=== PATIENT | male | born 1965 | race Caucasian/White ===

== ENCOUNTER 2020-04-11 06:31 | Outpatient (CLI) | payer OTHER, SELFPAY ==
--- NOTE | 2020-04-11 07:15 | US_ITS ---
WS: [id number] ULTRASOUND SOFT TISSUES axilla. HISTORY: Enlarged axillary lymph nodes bilaterally COMPARISON: None available. TECHNIQUE: 2-D and color Doppler imaging is submitted. RIGHT axilla: There are numerous lymph nodes in the RIGHT axilla. Thickness of the cortex is increase d and is asymmetric. The largest lymph node measures 2.1 x 1.2 x 0.9 cm. Cannot determine the vascula rity on the imaging submitted. LEFT axillary lymph nodes are enlarged. The largest lymph node measures 2.3 x 1.5 x 1.6 cm. Markedly thickened cortex with displacement of the central renal fat. US/US soft tissue/extremity [id number] IMPRESSION: 1. Bilateral axillary lymphadenopathy. Abnormal lymph nodes. The most concerni ng lymph node in the LEFT axilla. This can undergo fine-needle aspiration by gregorio munson if necessary. 2. Evaluate for possible neoplastic process/lymphoma.
== END 2020-04-11 06:32 | disposition home or self-care (01) ==
LOC: RAD 06:31
PROVIDERS: Visit Provider Nurse Practitioner Family
DX: R59.0 Localized enlarged lymph nodes (principal)
CPT/HCPCS: 76882

== ENCOUNTER → 2020-04-21 17:00 | Outpatient (BNVA) | payer OTHER, SELFPAY | PROVIDERS: Visit Provider Nurse Practitioner Family | DX: R59.1 Generalized enlarged lymph nodes (principal); R53.83 Other fatigue; Z68.22 Body mass index [BMI] 22.0-22.9, adult; F17.211 Nicotine dependence, cigarettes, in remission | CPT/HCPCS: 80053; 85025 ==

== ENCOUNTER 2020-04-24 08:06 | Outpatient (CLI) | payer OTHER, SELFPAY ==
[2020-04-23 07:12] VITALS: BMI 23.5
--- NOTE | 2020-04-24 08:38 | US_ITS ---
WS: [id number] ULTRASOUND GUIDED BIOPSY LEFT AXILLARY LYMPH NODE. HISTORY: enlarged node (L) axilla Procedure, risks, and complications are explained to the patient. Consent was obtained. Skin is clean sed with ChloraPrep and anesthetized with 1% buffered lidocaine. Multiple core biopsies are performed of the abnormal lymph node in the LEFT axilla. Core biopsies are performed with a 20-gauge needle and placed in saline. Additional aspirate is performed with a 20-ga uge needle and placed in saline for cytology. No complications. US/US biopsy lymph node [id number] IMPRESSION: Uncomplicated ultrasound-guided core biopsy and aspirate of an abnormal LEFT ax illary lymph node. Final pathology results are pending.
[2020-05-01 13:02] LABS: Miscellaneous Test See Scanned Lab Rpt
== END 2020-04-24 08:07 | disposition home or self-care (01) ==
LOC: GILAB 08:11 → RAD 08:18
PROVIDERS: Radiology Diagnostic Radiology; PCP Nurse Practitioner Family; Visit Provider Nurse Practitioner Family
DX: R59.0 Localized enlarged lymph nodes (principal)
CPT/HCPCS: 38505; 76942; 88271; 88275; 88305

== ENCOUNTER 2020-05-16 13:37 | Outpatient (CLI) | payer OTHER, SELFPAY ==
--- NOTE | 2020-05-16 14:15 | USCV_ITS ---
Sammy Dykes Age: 55 Gender: M : 1965 Exam Date: 05/16/2020 13:57 Ordering Phys: Zahida Pierre MD ([email or web address]) Technologist: Susana Nunez Exam Location: [facility] – [place], [place] Indication: A FIB BP: 118 / 68 HR: 61 Rhythm: Sinus Technical Quality: Adequate MEASUREMENTS (Male / Female) Normal Values 2D ECHO LV Diastolic Diameter PLAX 4.9 cm 4.2 - 5.9 / 3.9 - 5.3 cm LV Systolic Diameter PLAX 2.9 cm LV Chamber Size 4.4 cm IVS Diastolic Thickness 0.9 cm 0.6 - 1.0 / 0.6 - 0.9 cm IVS Systolic Thickness 1.6 cm LVPW Diastolic Thickness 1.2 cm 0.6 - 1.0 / 0.6 - 0.9 cm LVPW Systolic Thickness 1.9 cm RV Chamber Size 3.4 cm LVOT Diameter 2.1 cm LV Ejection Fraction 2D Teich 71.5 % LV Ejection Fraction MOD 2C 31.5 % LV Ejection Fraction 2C AL 31.7 % LA Diameter 4.5 cm LA Width 2.9 cm LA Height 4.2 cm RA Width 3.2 cm RA Height 4.7 cm Aorta at Sinotubular Diameter 3.5 cm M-MODE Aortic Annulus Diameter 4.0 cm LA Ao Ratio MM 1.1 MV E Point Septal Separation 0.4 cm DOPPLER AV Peak Velocity 160.0 cm/s LVOT Peak Velocity 92.0 cm/s AV Area Cont Eq vti 1.7 cm squared AV Area Cont Eq pk 2.0 cm squared MV Area PHT 3.1 cm squared Mitral E to A Ratio 1.3 MV E' Velocity 15.0 cm/s Mitral E to MV E' Ratio 6.2 Mitral E to LV E' Lateral Ratio 5.8 Mitral E to LV E' Septal Ratio 6.6 TR Peak Velocity 237.7 cm/s TR Peak Gradient 22.6 mmHg TR Mean Velocity 183.0 cm/s TR Mean Gradient 14.6 mmHg TR Velocity Time Integral 71.7 cm TV Peak E Velocity 77.0 cm/s PV Peak Velocity 66.0 cm/s RV Acceleration Time 0.2 s RV Ejection Time 0.4 s RV AcT/ET 0.5 FINDINGS Left Ventricle Normal left ventricular size, systolic function and wall thickness, with no regional wall motion abnormalities. Left ventricular ejection fraction is estimated at 70%. Normal diastolic function. Right Ventricle Normal right ventricular size and systolic function. Right Atrium Normal right atrial size. Left Atrium Mildly increased left atrial size. Mitral Valve Structurally normal mitral valve. No mitral valve stenosis. Trace mitral valve regurgitation. Aortic Valve Structurally normal trileaflet aortic valve. No aortic valve stenosis. No aortic valve regurgitation. Tricuspid Valve Structurally normal tricuspid valve. No tricuspid valve stenosis. Trace tricuspid valve regurgitation. Pulmonic Valve Structurally normal pulmonic valve. No pulmonary valve stenosis. Trace pulmonary valve regurgitation. Pericardium No pericardial effusion. Aorta Normal size aortic root and proximal ascending aorta. CONCLUSIONS 1. Normal left ventricular size, systolic function and wall thickness, with no regional wall motion abnormalities. Left ventricular ejection fraction is estimated at 70%. Normal diastolic function. 2. Normal right ventricular size and systolic function. 3. No significant valvular abnormality. 4. Mildly increased left atrial size. 5. No prior similar studies to compare. Zahida Pierre MD (Electronically Signed) Final Date: 16 May 2020 17:43 S
== END 2020-05-16 13:38 | disposition home or self-care (01) ==
LOC: RAD 13:40
PROVIDERS: PCP Nurse Practitioner Family; Visit Provider Internal Medicine Cardiovascular Disease
DX: I48.91 Unspecified atrial fibrillation (principal)
CPT/HCPCS: 93306

== ENCOUNTER → 2021-05-29 14:50 | Outpatient (BNVA) | payer OTHER, SELFPAY | PROVIDERS: PCP Nurse Practitioner Family; Visit Provider Nurse Practitioner Family | DX: I10 Essential (primary) hypertension (principal); N40.0 Benign prostatic hyperplasia without lower urinary tract symptoms; C83.10 Mantle cell lymphoma, unspecified site; I48.91 Unspecified atrial fibrillation; G47.19 Other hypersomnia; G89.29 Other chronic pain | CPT/HCPCS: 80053; 80061; 82306; 82607; 84443; 85025 ==

== ENCOUNTER 2021-06-16 06:00 | Outpatient (RCR) | payer OTHER, SELFPAY | END 2021-07-02 23:59 | disposition home or self-care (01) | LOC: TPT 06:00 | PROVIDERS: PCP Nurse Practitioner Family; Referring Provider Nurse Practitioner Family; Visit Provider Nurse Practitioner Family | DX: R53.83 Other fatigue (principal); C83.10 Mantle cell lymphoma, unspecified site | CPT/HCPCS: 97110; 97163 ==

== ENCOUNTER 2021-07-03 06:00 | Outpatient (RCR) | payer OTHER, SELFPAY | END 2021-08-02 23:59 | disposition home or self-care (01) | LOC: TPT 06:00 | PROVIDERS: PCP Nurse Practitioner Family; Referring Provider Nurse Practitioner Family; Visit Provider Nurse Practitioner Family | DX: R53.83 Other fatigue (principal) | CPT/HCPCS: 97110 ==

== ENCOUNTER 2021-08-03 06:00 | Outpatient (RCR) | payer OTHER, SELFPAY | END 2021-09-01 23:59 | disposition home or self-care (01) | LOC: TPT 06:00 | PROVIDERS: PCP Nurse Practitioner Family; Visit Provider Nurse Practitioner Family | DX: R53.83 Other fatigue (principal); C83.10 Mantle cell lymphoma, unspecified site | CPT/HCPCS: 97164 ==

== ENCOUNTER → 2021-08-21 09:24 | Outpatient (BNVA) | payer OTHER, SELFPAY | PROVIDERS: PCP Nurse Practitioner Family; Visit Provider Nurse Practitioner Family | DX: R05.9 Cough, unspecified (principal) | CPT/HCPCS: 71046; 80053; 85025; 87635 ==

== ENCOUNTER → 2021-08-26 09:35 | Outpatient (BNVA) | payer OTHER, SELFPAY | PROVIDERS: PCP Nurse Practitioner Family; Visit Provider Nurse Practitioner Family | DX: J18.9 Pneumonia, unspecified organism (principal) | CPT/HCPCS: 71046 ==

== ENCOUNTER → 2021-09-15 16:40 | Outpatient (BNVA) | payer OTHER, SELFPAY | PROVIDERS: PCP Nurse Practitioner Family; Visit Provider Nurse Practitioner Family | DX: J18.9 Pneumonia, unspecified organism (principal); Z20.822 Contact with and (suspected) exposure to COVID-19 | CPT/HCPCS: 71046; 87635 ==

== ENCOUNTER → 2021-09-23 10:31 | Outpatient (BNVA) | payer OTHER, SELFPAY | PROVIDERS: PCP Nurse Practitioner Family; Visit Provider Nurse Practitioner Family | DX: Z87.01 Personal history of pneumonia (recurrent) (principal); Z85.72 Personal history of non-Hodgkin lymphomas | CPT/HCPCS: 71046 ==

== ENCOUNTER → 2021-11-10 14:52 | Outpatient (BNVA) | payer BC, SELFPAY | PROVIDERS: PCP Nurse Practitioner Family; Visit Provider Nurse Practitioner Family | DX: J84.9 Interstitial pulmonary disease, unspecified (principal); R05.9 Cough, unspecified | CPT/HCPCS: 71046 ==

== ENCOUNTER 2021-11-23 13:28 | Outpatient (CLI) | payer BC, SELFPAY ==
[2021-11-23 15:30] VITALS: BP 104/68; PULSE 58; RESP 18; TEMP 36.7; O2SAT 94
[2021-11-23 15:55] VITALS: BP 104/61; PULSE 58; RESP 18; TEMP 36.4; O2SAT 95
[2021-11-23 16:30] VITALS: BP 99/59; PULSE 57; RESP 18; TEMP 36.3; O2SAT 98
--- NOTE | 2021-11-24 12:12 | ONC CON_ITS ---
Dr. Pacheco New Patient Note Patient: Sammy Dykes Unit #: [id number]: 1965 Dicatated By: Yayo Pacheco M.D.Date of Visit: Nov 23, 2021 Onc MED New Patient/Consult Referring Physician: Dr. BLANCA THURMAN M.D. Chief Complaint: Lymphoma/hypogammaglobulinemia. History of Present Illness: This is a 56-year-old man with stage IV mantle cell lymphoma. He also has been found to have hypogammaglobulinemia, presumed treatment related. In 2019 he was discovered to have bilateral axillary adenopathy as an incidental finding on the screening coronary artery calcium CT scan. Bilateral axillary ultrasound on 04/11/2020 showed a large axillary lymph nodes bilaterally, measuring 2.1 x 1.2 x 0.9 cm on the right and 2.3 x 1.5 x 1.6 cm on the left. FNA biopsy of a left axillary lymph node on 04/24/2020 showed a monotypic B-cell population which was CD19, CD20, and CD5 positive with surface lambda light chain restriction and negative for CD10, CD23, and CD38. The findings were worrisome for mantle cell lymphoma. He was referred to Dr. Blanca Thurman at [facility] for further management. His bone marrow aspiration/biopsy on 05/14/2020 showed low-level involvement by B-cell lymphoma, consistent with stage IV disease. His staging PET/CT showed mildly FDG avid axillary and hilar lymph nodes which were felt to be indeterminant, consistent with reactive changes or low-grade lymphoma. A hypoattenuating left thyroid nodule was mildly FDG avid. He underwent initial treatment with 6 cycles of bendamustine/rituximab from 06/02/2020 through 11/04/2020. His treatment was complicated by COVID-19 virus infection in August 2020. Restaging PET/CT on 01/12/2021 showed persistent inflammatory process within both lungs, but no evidence of lymphoma. His repeat bone marrow aspiration/biopsy also showed no evidence of lymphoma. On 03/18/2021 he underwent OZZY M autologous stem cell transplant. That procedure was complicated neutropenic fever and severe neutropenia colitis, and he also developed COVID-19 virus pneumonia. He had gradual recovery, but he required treatment for pneumonia again in September 2021 and in October 2021. Due to his recurrent infections, it was opted to defer maintenance rituximab. In the meantime, he completed COVID-19 vaccinations with Moderna injections on 07/24/2021, on 10/01/2021, and on 11/03/2021. His laboratory studies in October, though, did show hypogammaglobulinemia. As such, he was recommended to receive monoclonal antibody prophylaxis for COVID-19 and to then start monthly replacement IVIG 30 days later. He is seen here so that he can receive his IVIG infusions locally. He says he is feeling fair. He does complain that he has no energy. 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 His ECOG score is 1. He has good appetite, and his weight is stable. He has no fever or night sweats. He recently had sore throat, he also has had some hoarseness. He sometimes has cough. He says his breathing is okay, though at times he does get short of breath. He is on CPAP for obstructive sleep apnea. He does not complain of chest pain. He currently has no GI or complaints. He has chronic musculoskeletal pain, mainly in the neck and back. The pain does tend to improve when he is on steroid therapy. It is otherwise unchanged. He does not complain of headache or dizziness, and he has no focal neurologic symptoms. He does report having some memory loss. He has chronic anxiety, but it is managed adequately with medication. Past Medical History: His medical history includes atrial fibrillation, benign prostatic hypertrophy, chronic anxiety, chronic musculoskeletal pain, coronary artery disease, history of COVID-19 in August 2020 and in March 2021, hypertension, mantle cell lymphoma, and obstructive sleep apnea. Past Surgical History: His surgical/procedural history includes FNA biopsy of left axillary lymph node in 2019, bone marrow aspiration/biopsy x 3, FNA biopsy of left thyroid lobe nodule in 2020, BEAM autologous stem cell transplant in 2020, and appendectomy in 1973. Medications: Acyclovir 1 Tablet (of 400 mg) Oral t.i.d., Albuterol Sulfate 2 Puff(s) (of 108 (90 base) mcg/act) Aerosol Powder, Breath Activated Inhalation four times a day PRN, DULoxetine HCl 1 Capsule (of 30 mg) Capsule Delayed Release Particles Oral daily, Famotidine (40 mg) Tablet Oral daily, Furosemide 1 Tablet (of 20 mg) Oral daily PRN, Gabapentin 1 - 2 Capsule (of 300 mg) Oral t.i.d., hydrOXYzine HCl 1 Tablet (of 25 mg) Oral q 8 hours PRN, Meloxicam 1 Tablet (of 15 mg) Oral daily, Methocarbamol 1 Tablet (of 750 mg) Oral four times a day PRN, Metoprolol Succinate ER 1 Tablet (of 200 mg) Tablet SR 24 HR Oral daily, Ondansetron HCl (8 mg) Tablet Oral Take as Directed, oxyCODONE HCl (10 mg) Tablet Oral Take as Directed, Prochlorperazine Maleate (10 mg) Tablet Oral Take as Directed, Rivaroxaban 1 Tablet (of 20 mg) Oral daily, Tamsulosin HCl 1 Capsule (of 0.4 mg) Oral daily Allergies: Penicillins Social History: Mr. Dykes is . He is a non-smoker, but he chewed tobacco for about 20 years. He quit chewing 20 years ago. He has a history of alcohol use in the past and for couple of years it was heavy. He quit drinking 3 to 4 years ago. Family History: Father with Alzheimer's dementia at age 79. Mother with heart attack at age 81. She also had breast cancer. A brother, currently age 66, has been treated for prostate cancer. A sister had breast cancer and a sister had ovarian cancer, both . A sister did of a heart attack and another with complications after surgery. One other sister is in good health. He has 2 sons, one of whom has chronic myeloid leukemia. Review Of Symptoms: Constitutional - He is feeling just fair. 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 He has good appetite and his weight is stable. He does not have fever or night sweats. ECOG score is 1, Eyes - No change in vision, ENMT - No hearing loss or tinnitus. No sinus congestion/drainage. No mouth sores. He recently had sore throat and has had hoarseness. No difficulty swallowing, Hematologic/Lymphatic - He has easy bruising, Respiratory - He has some shortness of breath. He sometimes has cough. No pleuritic pain or hemoptysis, Cardiovascular - No angina pain. No palpitations, Gastrointestinal - No nausea or vomiting. No heartburn or acid reflux. No diarrhea or constipation. No blood in the stool or black stools, Genitourinary (M) - No dysuria or hematuria. No urinary frequency. He has nocturia up to 4 times. No urgency or incontinence, Musculoskeletal - He has chronic musculoskeletal pain, mainly in the neck and back, Integumentary - No skin rash or other skin changes, Neurologic - No headache or dizziness. No numbness or tingling. No other focal neurologic symptoms. He does report having some difficulty with memory, Psychiatric - He has anxiety, but it is adequately managed with medication. No depression. He does not sleep well. Vital Signs: Performed on Nov 23, 2021 14:48: 6, 0, 25.25, 2.11 sq.m, 73 in, 94 % (LOW), 65 /min, 16 /min, 109/69 mm(hg), 97.9 F (LOW), and 191.4 lbs (HIGH). Physical Examination: Constitutional - He looks pretty good generally, Eyes - Sclerae nonicteric. Conjunctivae clear, ENMT - No lesions noted in the oral cavity, Neck - No mass or thyromegaly, Hematologic/Lymphatic - No cervical, clavicular, or axillary adenopathy, Respiratory - Lungs sound clear with slightly coarse breath sounds bilaterally, Cardiovascular - Heart rhythm is regular. There is no murmur, gallop, or rub noted, Abdomen - Soft and non-tender. Liver and spleen are not enlarged. There is no abdominal mass or ascites noted and there is no inguinal adenopathy, Back/Spine - No spine or CVA tenderness noted, Extremities - No edema. Dorsalis pedis pulses are palpable bilaterally, Integumentary - No rashes. No suspicious skin lesions noted, Neurologic - No focal neurologic deficits noted. Problem List: 1. Mantle cell lymphoma, stage IV, currently in remission. 2. Hypogammaglobulinemia, presumed treatment related. 3. History of COVID-19 virus infection in August 2020 and in March 2021. 4. Hypertension. 5. Atrial fibrillation. 6. Suspected coronary artery disease, based on CT evidence of coronary calcifications. 7. Obstructive sleep apnea. 8. Chronic musculoskeletal pain. 9. Benign prostatic hypertrophy. 10. Chronic anxiety. Problems Addressed with this Encounter and Plan: 1. Patient with mantle cell lymphoma, initially diagnosed by FNA biopsy of a left axillary lymph node in April 2020. He had stage IV disease, with bone marrow involvement. He had complete remission following treatment with 6 cycles of bendamustine/rituximab chemotherapy from May 2020 through November 2020. His treatment was complicated by COVID-19 virus infection in August 2020. He underwent BEAM autologous stem cell transplant in March 2021. That treatment was complicated by neutropenic colitis and by COVID-19 virus infection/pneumonia. He had further episodes of pneumonia in September 2021 and in October 2021. Due to recurrent infections, it was opted to defer maintenance rituximab. He is being followed expectantly for the lymphoma. 2. He has had recurrent infections and his laboratory studies in October 2021 confirmed hypogammaglobulinemia. This is presumed to be treatment related. He completed COVID-19 vaccination with injections of Moderna vaccine on 07/24/2021, on 10/01/2021, and on 11/03/2021. As such, he will now be given monoclonal antibody prophylaxis with an intramuscular injection of tixagevimab/cilgavimab. He will return in 30 days to begin his monthly replacement IVIG. He is scheduled to return for follow-up at [facility] on 04 January. He is also to receive a COVID-19 booster at a 6-month interval. Signed By: Yayo Pacheco M.D. <<Signature on File>>
== END 2021-11-23 13:29 | disposition home or self-care (01) ==
PROVIDERS: PCP Nurse Practitioner Family; Visit Provider Internal Medicine Medical Oncology
DX: C83.14 Mantle cell lymphoma, lymph nodes of axilla and upper limb (principal); D80.1 Nonfamilial hypogammaglobulinemia; I48.91 Unspecified atrial fibrillation; N40.0 Benign prostatic hyperplasia without lower urinary tract symptoms; F41.9 Anxiety disorder, unspecified; I25.10 Atherosclerotic heart disease of native coronary artery without angina pectoris; I10 Essential (primary) hypertension; G47.33 Obstructive sleep apnea (adult) (pediatric); Z79.899 Other long term (current) drug therapy; Z86.16 Personal history of COVID-19; Z87.891 Personal history of nicotine dependence
CPT/HCPCS: 96372; 99205

== ENCOUNTER 2021-12-11 09:28 | Outpatient (CLI) | payer BC, SELFPAY ==
[2021-12-11 10:35] VITALS: BP 118/80; PULSE 48; RESP 18; TEMP 36.6; O2SAT 98
== END 2021-12-11 09:29 | disposition home or self-care (01) ==
PROVIDERS: PCP Nurse Practitioner Family; Visit Provider Internal Medicine Medical Oncology
DX: U07.1 COVID-19 (principal); Z79.899 Other long term (current) drug therapy
CPT/HCPCS: 96372

== ENCOUNTER 2022-01-05 08:02 | Outpatient (CLI) | payer BC, SELFPAY ==
[2022-01-05 08:55] LABS: Basophils % 0.3 %; Eosinophils # 0.6 10^3/uL (0.0-0.8); Eosinophils % 8.4 %; Hematocrit 34.9 % (42.0-52.0); Hemoglobin 11.2 g/dL (11.7-16.6); Lymphocytes # 1.8 10^3/uL (0.8-4.8); Mean Corpuscular HGB Conc 32.1 g/dL (30.0-36.0); Mean Corpuscular Volume 87.3 fl (80-94); Mean Platelet Volume 8.8 fL (7.4-10.4); Monocytes # 0.9 10^3/uL (0.2-0.9); Monocytes % 13.8 %; Neutrophils # 3.22 10^3/uL (1.8-7.7); Neutrophils % 49.2 %; Nucleated Red Blood Cells % 0 %; Platelet Count 193 10^3/cmm (130-400); Red Cell Distribution Width 14.4 % (12.1-15.1); White Blood Count 6.5 10^3/uL (4.0-10.0)
[2022-01-05 09:15] LABS: Alanine Aminotransferase 25 U/L (0-41); Alkaline Phosphatase 156 IU/L (40-130); Anion Gap 13.1 (5-19); Aspartate Amino Transferase 29 U/L (0-40); Blood Urea Nitrogen 15 mg/dL (6-20); Calcium 9.1 mg/dL (8.5-10.5); Carbon Dioxide 28 mmol/L (22-29); Chloride 104 mmol/L (98-107); Globulin 1.4 g/dL (1.3-4.6); Glomerular Filtration Rate 86.7 mL/min (90-130); Glucose 98 mg/dL (65-115); Immunoglobulin IGG 328 mg/dL (700-1600); Lactate Dehydrogenase 217 U/L (135-225); Osmolality Calculated 293 mOsm/kg (285-295); Potassium 4.1 mmol/L (3.5-5.1); Sodium 141 mmol/L (136-145); Total Bilirubin 0.2 mg/dL (0.15-1.2); Total Protein 5.4 g/dL (6.6-8.7)
[2022-01-05 09:31] LABS: Immunoglobulin IGA 25 mg/dL (70-400); Immunoglobulin IGM 17 mg/dL (40-230)
[2022-01-05] MEDS: acetaminophen 325 mg Tablet 650 MG PO (11:30)
[2022-01-05] MEDS: diphenhydrAMINE 25 mg Capsule PO (11:30)
[2022-01-05] MEDS: sodium chloride 0.9% 250 ML 25 ML IV (11:30)
[2022-01-05 13:55] LABS: Iron 67 ug/dL (59-158); Percent Saturation 29.1 % (20-50); Total Iron Binding Capacity 230 mcg/dl; Unsaturated Iron Binding 163 ug/dL (112-347); Vitamin B12 924 pg/mL (232-1245)
--- NOTE | 2022-01-07 15:00 | ONC FU_ITS ---
Dr. Pacheco Patient Follow-Up Note Patient: Sammy Dykes Unit #: [id number]: 1965 Dicatated By: Yayo Pacheco M.D.Date of Visit:Jan 05, 2022 Onc Med Follow-up/Prog Note Chief Complaint: Lymphoma/hypogammaglobulinemia. History of Present Illness: This is a 56-year-old man with stage IV mantle cell lymphoma. He also has hypogammaglobulinemia which is presumed treatment related. In 2019 he was discovered to have bilateral axillary adenopathy as an incidental finding on the screening coronary artery calcium CT scan. Bilateral axillary ultrasound on 04/11/2020 showed a large axillary lymph nodes bilaterally, measuring 2.1 x 1.2 x 0.9 cm on the right and 2.3 x 1.5 x 1.6 cm on the left. FNA biopsy of a left axillary lymph node on 04/24/2020 showed a monotypic B-cell population which was CD19, CD20, and CD5 positive with surface lambda light chain restriction and negative for CD10, CD23, and CD38. The findings were worrisome for mantle cell lymphoma. He was referred to Dr. Prabhjot Thurman at [facility] for further management. His bone marrow aspiration/biopsy on 05/14/2020 showed low-level involvement by B-cell lymphoma, consistent with stage IV disease. His staging PET/CT showed mildly FDG avid axillary and hilar lymph nodes which were felt to be indeterminant, consistent with reactive changes or low-grade lymphoma. A hypoattenuating left thyroid nodule was mildly FDG avid. He underwent initial treatment with 6 cycles of bendamustine/rituximab from 06/02/2020 through 11/04/2020. His treatment was complicated by COVID-19 virus infection in August 2020. Restaging PET/CT on 01/12/2021 showed persistent inflammatory process within both lungs, but no evidence of lymphoma. His repeat bone marrow aspiration/biopsy also showed no evidence of lymphoma. On 03/18/2021 he underwent OZZY M autologous stem cell transplant. That procedure was complicated neutropenic fever and severe neutropenia colitis, and he also developed COVID-19 virus pneumonia. He had gradual recovery, but he required treatment for pneumonia again in September 2021 and in October 2021. Due to his recurrent infections, it was opted to defer maintenance rituximab. In the meantime, he completed COVID-19 vaccinations with Moderna injections on 07/24/2021, on 10/01/2021, and on 11/03/2021. His laboratory studies in October, though, did show hypogammaglobulinemia. As such, he was recommended to receive monoclonal antibody prophylaxis for COVID-19 and to then start monthly replacement IVIG 30 days later. He was seen here so that he could receive his IVIG infusions locally. He is seen for a scheduled visit. He has been feeling pretty good generally, though he continues to have some cough. He does bring up some green sputum with it, but he says the cough is nothing like it was before. He also says that he still does not have a lot of air, but his breathing also has improved. He finished his course of antibiotic therapy 1 to 2 weeks ago. He does not have a lot of energy, but he is working every day. ECOG score is 1. He has good appetite. He has no fever or night sweats. He has a little bit of sinus drainage. He was having sore throat, but that is okay now. He has not been having chest pain. He has no GI or complaints. He has generalized joint pain, which is the same. He does not complain of headache or dizziness. He does have some numbness/tingling, but it comes and goes. Medications: Acyclovir 1 Tablet (of 400 mg) Oral t.i.d., Albuterol Sulfate 2 Puff(s) (of 108 (90 base) mcg/act) Aerosol Powder, Breath Activated Inhalation four times a day PRN, DULoxetine HCl 1 Capsule (of 30 mg) Capsule Delayed Release Particles Oral daily, Famotidine (40 mg) Tablet Oral daily, Furosemide 1 Tablet (of 20 mg) Oral daily PRN, Gabapentin 1 - 2 Capsule (of 300 mg) Oral t.i.d., hydrOXYzine HCl 1 Tablet (of 25 mg) Oral q 8 hours PRN, Meloxicam 1 Tablet (of 15 mg) Oral daily, Metoprolol Succinate ER 1 Tablet (of 200 mg) Tablet SR 24 HR Oral daily, Ondansetron HCl (8 mg) Tablet Oral Take as Directed, oxyCODONE HCl (10 mg) Tablet Oral Take as Directed, Prochlorperazine Maleate (10 mg) Tablet Oral Take as Directed, Rivaroxaban 1 Tablet (of 20 mg) Oral daily, Tamsulosin HCl 1 Capsule (of 0.4 mg) Oral daily Allergies: Penicillins Vital Signs: Performed on Jan 05, 2022 10:08 Height - 73.00 in Weight - 201 lbs (HIGH) BSA - 2.16 sq.m BMI - 26.52 Temperature - 96.8 F (LOW) Pulse - 63 /min Respiration - 19 /min BP - 122/78 mm(hg) O2 Sat - 98 % Pain - 5 Fatigue - 0 Physical Examination: Constitutional - He looks pretty good generally, Eyes - Sclerae nonicteric. Conjunctivae clear, ENMT - No lesions noted in the oral cavity, Hematologic/Lymphatic - No cervical, clavicular, or axillary adenopathy, Respiratory - Lungs sound clear bilaterally, Cardiovascular - Heart rhythm is regular. There is no murmur, gallop, or rub noted, Abdomen - Mildly distended and tympanic. Liver and spleen are not enlarged. There is no abdominal mass or ascites noted and there is no inguinal adenopathy, Extremities - There is mild lower extremity edema, Neurologic - No focal neurologic deficits noted. Lab/Imaging: Test performed on Jan 05, 2022 08:47 Iron 67 mcg/dL LDH (Total) 217 U/L Sodium 141 mmol/L Vitamin B12 924 pg/mL Iron Binding Capacity (TIBC) 230 mcg/dl Potassium 4.1 mmol/L % Iron Saturation 29.1 % Chloride 104 mmol/L CO2 28 mmol/L UIBC 163 mcg/dL Anion Gap 13.1 BUN 15 mg/dL Creatinine 0.9 mg/dL Cr Clearance (Est) 115.37 mL/min eGFR 86.7 mL/min Glucose 98 mg/dL Osmolality - Calculated 293 mOsm/kg Calcium 9.1 mg/dL Protein, Total 5.4 g/dL Albumin 4.0 g/dL Globulin 1.4 g/dL Bilirubin, Total 0.2 mg/dL ALT (SGPT) 25 U/L AST (SGOT) 29 U/L Alkaline Phosphatase 156 IU/L WBC 6.5 10 3/uL RBC 4.00 10 6/uL HGB 11.2 g/dL HCT 34.9 % MCV 87.3 fl MCH 28.0 pg MCHC 32.1 g/dL RDW 14.4 % Platelet Count 193 10 3/cmm MPV 8.8 fL Neutrophils 3.22 10 3/uL Lymphocytes 1.8 10 3/uL Monocytes 0.9 10 3/uL Eosinophils 0.6 10 3/uL Basophils 0.0 10 3/uL Neutrophil % 49.2 % Lymphocyte % 28.0 % Monocyte % 13.8 % Eosinophil % 8.4 % Basophils % 0.3 % NRBC % 0 % IgA 25 mg/dL Problem List: 1. Mantle cell lymphoma, stage IV, currently in remission. 2. Hypogammaglobulinemia, presumed treatment related. 3. History of COVID-19 virus infection in August 2020 and in March 2021. 4. Hypertension. 5. Atrial fibrillation. 6. Suspected coronary artery disease, based on CT evidence of coronary calcifications. 7. Obstructive sleep apnea. 8. Chronic musculoskeletal pain. 9. Benign prostatic hypertrophy. 10. Chronic anxiety. Problems Addressed with this Encounter and Plan: Patient with mantle cell lymphoma, initially diagnosed by FNA biopsy of a left axillary lymph node in April 2020. He had stage IV disease, with bone marrow involvement. He had complete remission following treatment with 6 cycles of bendamustine/rituximab chemotherapy from May 2020 through November 2020. His treatment was complicated by COVID-19 virus infection in August 2020. He underwent BEAM autologous stem cell transplant in March 2021. That treatment was complicated by neutropenic colitis and by COVID-19 virus infection/pneumonia. He had further episodes of pneumonia in September 2021 and in October 2021. During follow-up he was having recurrent infections, and it was opted to defer maintenance rituximab. His laboratory studies in October 2021 confirmed hypogammaglobulinemia. This was presumed to be treatment related. He completed COVID-19 vaccination with injections of Moderna vaccine on 07/24/2021, on 10/01/2021, and on 11/03/2021. He was then given monoclonal antibody prophylaxis with an intramuscular injection of tixagevimab/cilgavimab on 11/23/2021. He will now begin monthly replacement IVIG. His dosage calculates to 40 g, which will be given by IV infusion per the routine infusion protocol. He will return for treatment again in 1 month. In the meantime, he continues expectant management for the lymphoma. Signed By: Yayo Pacheco M.D. <<Signature on File>>
== END 2022-01-05 08:03 | disposition home or self-care (01) ==
PROVIDERS: PCP Nurse Practitioner Family; Visit Provider Internal Medicine Medical Oncology
DX: C83.18 Mantle cell lymphoma, lymph nodes of multiple sites (principal); C79.52 Secondary malignant neoplasm of bone marrow; D80.1 Nonfamilial hypogammaglobulinemia; K52.89 Other specified noninfective gastroenteritis and colitis; T45.1X5A Adverse effect of antineoplastic and immunosuppressive drugs, initial encounter; Z86.16 Personal history of COVID-19; Z87.01 Personal history of pneumonia (recurrent); Z92.25 Personal history of immunosuppression therapy; Z92.21 Personal history of antineoplastic chemotherapy; Z79.899 Other long term (current) drug therapy
CPT/HCPCS: 80053; 82607; 82784; 83540; 83550; 83615; 85025; 96365; 96366; 99215; J1568; J7050

== ENCOUNTER 2022-02-04 09:07 | Oncology outpatient (recurring) (ONCR) | payer BC, SELFPAY ==
[2022-02-04 09:26] LABS: Basophils % 0.4 %; Eosinophils # 0.3 10^3/uL (0.0-0.8); Hematocrit 36.7 % (42.0-52.0); Hemoglobin 11.9 g/dL (11.7-16.6); Lymphocytes # 1.8 10^3/uL (0.8-4.8); Lymphocytes % 34.9 %; Mean Corpuscular HGB Conc 32.4 g/dL (30.0-36.0); Mean Corpuscular Hemoglobin 28.7 pg (28.0-34.0); Mean Corpuscular Volume 88.4 fl (80-94); Monocytes # 0.8 10^3/uL (0.2-0.9); Monocytes % 15.6 %; Neutrophils # 2.27 10^3/uL (1.8-7.7); Neutrophils % 43.7 %; Nucleated Red Blood Cells % 0 %; Platelet Count 236 10^3/cmm (130-400); Red Blood Count 4.15 10^6/uL (4.1-5.3); Red Cell Distribution Width 14.4 % (12.1-15.1); White Blood Count 5.2 10^3/uL (4.0-10.0)
[2022-02-04 09:44] LABS: Immunoglobulin IGG 603 mg/dL (700-1600)
[2022-02-04 10:04] LABS: Immunoglobulin IGM 23 mg/dL (40-230)
[2022-02-04 10:05] LABS: Immunoglobulin IGA 41 mg/dL (70-400)
[2022-02-04] MEDS: diphenhydrAMINE 25 mg Capsule PO (10:48)
[2022-02-04] MEDS: acetaminophen 325 mg Tablet 650 MG PO (10:48)
[2022-02-04] MEDS: sodium chloride 0.9% 250 ML 50 ML IV (10:53)
[2022-02-04 11:44] VITALS: BP 111/69; PULSE 43; TEMP 36.5; O2SAT 98
[2022-02-04 12:00] VITALS: BP 124/77; PULSE 41; TEMP 36.4; O2SAT 98
[2022-02-04 12:15] VITALS: BP 122/73; PULSE 43; TEMP 36.4; O2SAT 98
[2022-02-04 12:30] VITALS: BP 121/72; PULSE 43; TEMP 36.2; O2SAT 98
[2022-02-04 12:45] VITALS: BP 124/68; PULSE 44; TEMP 36.1; O2SAT 98
[2022-02-04 14:45] VITALS: BP 124/77; BP 137/76; PULSE 43; PULSE 45; TEMP 36.5; TEMP 36.6; O2SAT 94; O2SAT 95
== END 2022-03-02 23:59 | disposition home or self-care (01) ==
PROVIDERS: Internal Medicine Medical Oncology; PCP Nurse Practitioner Family; Referring Provider Internal Medicine Medical Oncology; Visit Provider Nurse Practitioner Family
DX: C83.19 Mantle cell lymphoma, extranodal and solid organ sites (principal); C79.52 Secondary malignant neoplasm of bone marrow; D80.1 Nonfamilial hypogammaglobulinemia; Z86.16 Personal history of COVID-19; Z87.01 Personal history of pneumonia (recurrent); Z92.21 Personal history of antineoplastic chemotherapy; Z92.25 Personal history of immunosuppression therapy; Z79.899 Other long term (current) drug therapy
CPT/HCPCS: 82784; 85025; 96365; 96366; J1568; J7050

== ENCOUNTER 2022-04-01 09:00 | Oncology outpatient (recurring) (ONCR) | payer BC, SELFPAY ==
[2022-03-04] VITALS (7 sets, daily range): BP systolic 101–114; BP diastolic 59–70; PULSE 49–65; RESP 18; TEMP 36–36.4; O2SAT 92–97
[2022-03-04 08:44] LABS: Basophils % 0.3 %; Eosinophils # 0.2 10^3/uL (0.0-0.8); Eosinophils % 2.3 %; Hematocrit 37.3 % (42.0-52.0); Hemoglobin 12.7 g/dL (11.7-16.6); Lymphocytes # 2.5 10^3/uL (0.8-4.8); Lymphocytes % 37.6 %; Mean Corpuscular Hemoglobin 29.2 pg (28.0-34.0); Mean Corpuscular Volume 85.7 fl (80-94); Monocytes # 0.8 10^3/uL (0.2-0.9); Neutrophils # 3.13 10^3/uL (1.8-7.7); Neutrophils % 47.5 %; Nucleated Red Blood Cells % 0 %; Platelet Count 237 10^3/cmm (130-400); Red Blood Count 4.35 10^6/uL (4.1-5.3); White Blood Count 6.6 10^3/uL (4.0-10.0)
[2022-03-04 09:00] LABS: Alanine Aminotransferase 22 U/L (0-41); Alkaline Phosphatase 184 IU/L (40-130); Anion Gap 14.1 (5-19); Aspartate Amino Transferase 21 U/L (0-40); Blood Urea Nitrogen 16 mg/dL (6-20); Carbon Dioxide 28 mmol/L (22-29); Chloride 104 mmol/L (98-107); Globulin 2.3 g/dL (1.3-4.6); Glomerular Filtration Rate 76.5 mL/min (90-130); Glucose 82 mg/dL (65-115); Osmolality Calculated 294 mOsm/kg (285-295); Potassium 4.1 mmol/L (3.5-5.1); Sodium 142 mmol/L (136-145); Total Bilirubin 0.2 mg/dL (0.15-1.2); Total Protein 6.3 g/dL (6.6-8.7)
[2022-03-04] MEDS: sodium chloride 0.9% 250 ML 75 ML IV (10:00)
[2022-03-04] MEDS: diphenhydrAMINE 25 mg Capsule PO (10:01)
[2022-03-04] MEDS: acetaminophen 325 mg Tablet 650 MG PO (10:01)
[2022-04-01] VITALS (7 sets, daily range): BP systolic 112–129; BP diastolic 75–85; PULSE 60–89; RESP 18; TEMP -12.6–36.3; O2SAT 96–99
[2022-04-01 08:59] LABS: Basophils % 0.2 %; Eosinophils # 0.2 10^3/uL (0.0-0.8); Hemoglobin 12.7 g/dL (11.7-16.6); Lymphocytes # 2.5 10^3/uL (0.8-4.8); Lymphocytes % 28.6 %; Mean Corpuscular HGB Conc 34.3 g/dL (30.0-36.0); Mean Corpuscular Hemoglobin 29.1 pg (28.0-34.0); Mean Corpuscular Volume 84.7 fl (80-94); Mean Platelet Volume 9.4 fL (7.4-10.4); Monocytes # 0.8 10^3/uL (0.2-0.9); Monocytes % 8.8 %; Neutrophils # 5.29 10^3/uL (1.8-7.7); Neutrophils % 60.1 %; Nucleated Red Blood Cells % 0 %; Platelet Count 239 10^3/cmm (130-400); Red Blood Count 4.37 10^6/uL (4.1-5.3); Red Cell Distribution Width 13.2 % (12.1-15.1); White Blood Count 8.8 10^3/uL (4.0-10.0)
[2022-04-01 09:20] LABS: Alanine Aminotransferase 17 U/L (0-41); Alkaline Phosphatase 135 IU/L (40-130); Aspartate Amino Transferase 20 U/L (0-40); Blood Urea Nitrogen 18 mg/dL (6-20); Carbon Dioxide 27 mmol/L (22-29); Chloride 105 mmol/L (98-107); Globulin 2.3 g/dL (1.3-4.6); Glomerular Filtration Rate 98.9 mL/min (90-130); Glucose 103 mg/dL (65-115); Osmolality Calculated 292 mOsm/kg (285-295); Sodium 140 mmol/L (136-145); Total Bilirubin 0.2 mg/dL (0.15-1.2); Total Protein 6.3 g/dL (6.6-8.7)
[2022-04-01] MEDS: diphenhydrAMINE 25 mg Capsule PO (10:38)
[2022-04-01] MEDS: acetaminophen 325 mg Tablet 650 MG PO (10:38)
[2022-04-01] MEDS: sodium chloride 0.9% 250 ML 75 ML IV (10:39)
== END 2022-04-01 23:59 | disposition home or self-care (01) ==
PROVIDERS: PCP Nurse Practitioner Family; Referring Provider Internal Medicine Medical Oncology; Visit Provider Nurse Practitioner Family
DX: Z51.11 Encounter for antineoplastic chemotherapy (principal); C83.19 Mantle cell lymphoma, extranodal and solid organ sites; D80.1 Nonfamilial hypogammaglobulinemia
CPT/HCPCS: 80053; 85025; 96365; 96366; 99214; J1568; J7050

== ENCOUNTER 2022-05-31 13:30 | Oncology outpatient (recurring) (ONCR) | payer BC, SELFPAY ==
[2022-05-04] MEDS: sodium chloride 0.9% 250 ML 75 ML IV (12:52)
[2022-05-04] MEDS: acetaminophen 325 mg Tablet 650 MG PO (12:54)
[2022-05-04] MEDS: diphenhydrAMINE 25 mg Capsule PO (12:54)
[2022-05-04 14:13] LABS: Lactate Dehydrogenase 227 U/L (135-225)
[2022-05-31] VITALS (7 sets, daily range): BP systolic 94–104; BP diastolic 60–68; PULSE 47–54; TEMP 36.5–36.9; O2SAT 94–97
[2022-05-31 14:09] LABS: Basophils % 0.6 %; Eosinophils # 0.3 10^3/uL (0.0-0.8); Eosinophils % 3.6 %; Hematocrit 38.9 % (42.0-52.0); Hemoglobin 12.7 g/dL (11.7-16.6); Lymphocytes # 2.8 10^3/uL (0.8-4.8); Lymphocytes % 40.7 %; Mean Corpuscular HGB Conc 32.6 g/dL (30.0-36.0); Mean Corpuscular Hemoglobin 28.5 pg (28.0-34.0); Mean Corpuscular Volume 87.2 fl (80-94); Mean Platelet Volume 9.5 fL (7.4-10.4); Monocytes # 0.8 10^3/uL (0.2-0.9); Monocytes % 10.9 %; Neutrophils # 3.06 10^3/uL (1.8-7.7); Neutrophils % 44.1 %; Nucleated Red Blood Cells % 0 %; Platelet Count 233 10^3/cmm (130-400); Red Blood Count 4.46 10^6/uL (4.1-5.3)
[2022-05-31 14:29] LABS: Alanine Aminotransferase 14 U/L (0-41); Alkaline Phosphatase 152 U/L (40-130); Anion Gap 14.2 (5-19); Aspartate Amino Transferase 18 U/L (0-40); Blood Urea Nitrogen 29 mg/dL (6-20); Calcium 8.8 mg/dL (8.5-10.5); Carbon Dioxide 27 mmol/L (22-29); Chloride 103 mmol/L (98-107); Globulin 2.4 g/dL (1.3-4.6); Glomerular Filtration Rate 68.5 mL/min (90-130); Glucose 115 mg/dL (65-115); Osmolality Calculated 297 mOsm/kg (285-295); Potassium 4.2 mmol/L (3.5-5.1); Sodium 140 mmol/L (136-145); Total Bilirubin 0.2 mg/dL (0.15-1.2); Total Protein 6.4 g/dL (6.6-8.7)
[2022-05-31] MEDS: diphenhydrAMINE 25 mg Capsule PO (14:38)
[2022-05-31] MEDS: acetaminophen 325 mg Tablet 650 MG PO (14:38)
== END 2022-06-02 23:59 | disposition home or self-care (01) ==
PROVIDERS: PCP Nurse Practitioner Family; Referring Provider Internal Medicine Medical Oncology; Visit Provider Nurse Practitioner Family
DX: Z12.11 Encounter for screening for malignant neoplasm of colon (principal); C83.19 Mantle cell lymphoma, extranodal and solid organ sites
CPT/HCPCS: 80053; 83615; 85025; 96365; 96366; J1568; J7050

== ENCOUNTER 2022-07-01 08:00 | Oncology outpatient (recurring) (ONCR) | payer BC, SELFPAY ==
[2022-06-30 08:20] LABS: Basophils % 0.4 %; Eosinophils # 0.1 10^3/uL (0.0-0.8); Eosinophils % 1.8 %; Hematocrit 40.5 % (42.0-52.0); Hemoglobin 13.1 g/dL (11.7-16.6); Lymphocytes # 2.4 10^3/uL (0.8-4.8); Lymphocytes % 34.7 %; Mean Corpuscular HGB Conc 32.3 g/dL (30.0-36.0); Mean Corpuscular Hemoglobin 28.2 pg (28.0-34.0); Mean Corpuscular Volume 87.1 fl (80-94); Mean Platelet Volume 8.8 fL (7.4-10.4); Monocytes # 0.7 10^3/uL (0.2-0.9); Monocytes % 10.9 %; Neutrophils # 3.52 10^3/uL (1.8-7.7); Neutrophils % 51.6 %; Nucleated Red Blood Cells % 0 %; Platelet Count 252 10^3/cmm (130-400); Red Blood Count 4.65 10^6/uL (4.1-5.3); Red Cell Distribution Width 13.2 % (12.1-15.1); White Blood Count 6.8 10^3/uL (4.0-10.0)
[2022-06-30 08:50] LABS: Alanine Aminotransferase 15 U/L (0-41); Albumin Level 3.9 g/dL (3.5-5.2); Alkaline Phosphatase 190 U/L (40-130); Anion Gap 11.7 (5-19); Aspartate Amino Transferase 19 U/L (0-40); Blood Urea Nitrogen 15 mg/dL (6-20); Calcium 9.6 mg/dL (8.5-10.5); Carbon Dioxide 32 mmol/L (22-29); Chloride 99 mmol/L (98-107); Globulin 2.8 g/dL (1.3-4.6); Glomerular Filtration Rate 98.9 mL/min (90-130); Glucose 87 mg/dL (65-115); Lactate Dehydrogenase 252 U/L (135-225); Osmolality Calculated 286 mOsm/kg (285-295); Potassium 4.7 mmol/L (3.5-5.1); Sodium 138 mmol/L (136-145); Total Bilirubin 0.3 mg/dL (0.15-1.2); Total Protein 6.7 g/dL (6.6-8.7)
[2022-07-01] VITALS (7 sets, daily range): BP systolic 106–121; BP diastolic 69–77; PULSE 45–53; TEMP 36.2–36.9; O2SAT 93–97
[2022-07-01] MEDS: acetaminophen 325 mg Tablet 650 MG PO (08:24)
[2022-07-01] MEDS: diphenhydrAMINE 25 mg Capsule PO (08:24)
[2022-07-01] MEDS: sodium chloride 0.9% 250 ML 25 ML IV (08:27)
== END 2022-07-02 23:59 | disposition home or self-care (01) ==
PROVIDERS: Internal Medicine Medical Oncology; PCP Nurse Practitioner Family; Referring Provider Internal Medicine Medical Oncology; Visit Provider Nurse Practitioner Family
DX: C83.19 Mantle cell lymphoma, extranodal and solid organ sites (principal); D80.1 Nonfamilial hypogammaglobulinemia
CPT/HCPCS: 36415; 80053; 83615; 85025; 96365; 96366; J1568; J7050

== ENCOUNTER 2022-07-29 08:25 | Oncology outpatient (recurring) (ONCR) | payer BC, SELFPAY ==
[2022-07-29] VITALS (7 sets, daily range): BP systolic 100–114; BP diastolic 64–76; PULSE 52–58; TEMP 36.3–37.1; O2SAT 93–99
[2022-07-29] MEDS: acetaminophen 325 mg Tablet 650 MG PO (09:53)
[2022-07-29] MEDS: diphenhydrAMINE 25 mg Capsule PO (09:54)
[2022-07-29] MEDS: sodium chloride 0.9% 250 ML 100 ML IV (09:54)
== END 2022-08-02 23:59 | disposition home or self-care (01) ==
PROVIDERS: PCP Nurse Practitioner Family; Visit Provider Internal Medicine Medical Oncology
DX: C83.19 Mantle cell lymphoma, extranodal and solid organ sites (principal); D80.1 Nonfamilial hypogammaglobulinemia
CPT/HCPCS: 80053; 85025; 96365; 96366; J1568; J7050

== ENCOUNTER 2022-08-25 07:47 | Oncology outpatient (recurring) (ONCR) | payer BC, SELFPAY ==
[2022-08-25] VITALS (7 sets, daily range): BP systolic 133–150; BP diastolic 77–108; PULSE 80–111; TEMP 36.3–36.9; O2SAT 95–100
[2022-08-25 08:22] LABS: Basophils % 0.5 %; Eosinophils # 0.1 10^3/uL (0.0-0.8); Eosinophils % 2.4 %; Hematocrit 38.3 % (42.0-52.0); Hemoglobin 12.6 g/dL (11.7-16.6); Lymphocytes # 1.7 10^3/uL (0.8-4.8); Lymphocytes % 40.6 %; Mean Corpuscular HGB Conc 32.9 g/dL (30.0-36.0); Mean Corpuscular Hemoglobin 28.1 pg (28.0-34.0); Mean Corpuscular Volume 85.3 fl (80-94); Mean Platelet Volume 8.8 fL (7.4-10.4); Monocytes # 0.7 10^3/uL (0.2-0.9); Monocytes % 15.7 %; Neutrophils # 1.67 10^3/uL (1.8-7.7); Neutrophils % 40.3 %; Nucleated Red Blood Cells % 0 %; Platelet Count 247 10^3/cmm (130-400); Red Blood Count 4.49 10^6/uL (4.1-5.3); Red Cell Distribution Width 13.1 % (12.1-15.1); White Blood Count 4.1 10^3/uL (4.0-10.0)
[2022-08-25 08:37] LABS: Alanine Aminotransferase 10 U/L (0-41); Albumin Level 3.9 g/dL (3.5-5.2); Alkaline Phosphatase 187 U/L (40-130); Anion Gap 13.1 (5-19); Aspartate Amino Transferase 15 U/L (0-40); Blood Urea Nitrogen 12 mg/dL (6-20); Calcium 9.1 mg/dL (8.5-10.5); Carbon Dioxide 27 mmol/L (22-29); Chloride 100 mmol/L (98-107); Globulin 2.6 g/dL (1.3-4.6); Glomerular Filtration Rate 98.9 mL/min (90-130); Glucose 108 mg/dL (65-115); Osmolality Calculated 282 mOsm/kg (285-295); Potassium 4.1 mmol/L (3.5-5.1); Sodium 136 mmol/L (136-145); Total Bilirubin 0.2 mg/dL (0.15-1.2); Total Protein 6.5 g/dL (6.6-8.7)
[2022-08-25] MEDS: diphenhydrAMINE 25 mg Capsule PO (09:05)
[2022-08-25] MEDS: acetaminophen 325 mg Tablet 650 MG PO (09:05)
[2022-08-25] MEDS: sodium chloride 0.9% 250 ML 100 ML IV (09:06)
== END 2022-09-01 23:59 | disposition home or self-care (01) ==
PROVIDERS: PCP Nurse Practitioner Family; Visit Provider Internal Medicine Medical Oncology
DX: D80.1 Nonfamilial hypogammaglobulinemia (principal)
CPT/HCPCS: 80053; 85025; 96365; 96366; J1568; J7050

== ENCOUNTER 2022-09-22 08:22 | Oncology outpatient (recurring) (ONCR) | payer BC, SELFPAY ==
[2022-09-22] VITALS (7 sets, daily range): BP systolic 116–128; BP diastolic 74–89; PULSE 74–95; RESP 16; TEMP 35.7–36.2; O2SAT 95–99
[2022-09-22 08:40] LABS: Basophils % 0.7 %; Eosinophils # 0.1 10^3/uL (0.0-0.8); Eosinophils % 1.9 %; Hematocrit 39.4 % (42.0-52.0); Hemoglobin 12.9 g/dL (11.7-16.6); Lymphocytes # 1.8 10^3/uL (0.8-4.8); Lymphocytes % 31.5 %; Mean Corpuscular HGB Conc 32.7 g/dL (30.0-36.0); Mean Corpuscular Hemoglobin 28.2 pg (28.0-34.0); Mean Platelet Volume 8.7 fL (7.4-10.4); Monocytes # 0.7 10^3/uL (0.2-0.9); Monocytes % 12.7 %; Neutrophils # 3.08 10^3/uL (1.8-7.7); Neutrophils % 52.7 %; Nucleated Red Blood Cells % 0 %; Platelet Count 274 10^3/cmm (130-400); Red Blood Count 4.58 10^6/uL (4.1-5.3); Red Cell Distribution Width 12.8 % (12.1-15.1); White Blood Count 5.8 10^3/uL (4.0-10.0)
[2022-09-22] MEDS: sodium chloride 0.9% 250 ML 100 ML IV (08:59)
[2022-09-22] MEDS: diphenhydrAMINE 25 mg Capsule PO (08:59)
[2022-09-22] MEDS: acetaminophen 325 mg Tablet 650 MG PO (08:59)
[2022-09-22 09:22] LABS: Alanine Aminotransferase 9 U/L (0-41); Albumin Level 3.6 g/dL (3.5-5.2); Alkaline Phosphatase 168 U/L (40-130); Anion Gap 12.9 (5-19); Aspartate Amino Transferase 16 U/L (0-40); Blood Urea Nitrogen 13 mg/dL (6-20); Carbon Dioxide 25 mmol/L (22-29); Chloride 100 mmol/L (98-107); Globulin 2.5 g/dL (1.3-4.6); Glomerular Filtration Rate 115.4 mL/min (90-130); Glucose 127 mg/dL (65-115); Osmolality Calculated 280 mOsm/kg (285-295); Potassium 3.9 mmol/L (3.5-5.1); Sodium 134 mmol/L (136-145); Total Bilirubin 0.2 mg/dL (0.15-1.2); Total Protein 6.1 g/dL (6.6-8.7)
== END 2022-10-02 23:59 | disposition home or self-care (01) ==
LOC: ONCMED 08:22
PROVIDERS: PCP Nurse Practitioner Family; Visit Provider Internal Medicine Medical Oncology
DX: D80.1 Nonfamilial hypogammaglobulinemia (principal); Z79.899 Other long term (current) drug therapy
CPT/HCPCS: 80053; 85025; 96365; 96366; J1568; J7050

== ENCOUNTER 2022-10-20 14:16 | Oncology outpatient (recurring) (ONCR) | payer BC, SELFPAY | END 2022-11-02 23:59 | disposition home or self-care (01) | PROVIDERS: PCP Nurse Practitioner Family; Visit Provider Internal Medicine Medical Oncology | DX: Z53.9 Procedure and treatment not carried out, unspecified reason (principal) ==

== ENCOUNTER → 2022-10-21 17:09 | Outpatient (BNVA) | payer BC, SELFPAY | PROVIDERS: PCP Nurse Practitioner Family; Visit Provider Nurse Practitioner Family | DX: R05.9 Cough, unspecified (principal); R06.02 Shortness of breath; J18.9 Pneumonia, unspecified organism | CPT/HCPCS: 71046 ==

== ENCOUNTER → 2022-10-29 15:47 | Outpatient (BNVA) | payer BC, SELFPAY | PROVIDERS: PCP Nurse Practitioner Family; Visit Provider Nurse Practitioner Family | DX: R05.8 Other specified cough (principal) | CPT/HCPCS: 71046 ==

== ENCOUNTER 2022-11-24 07:49 | Oncology outpatient (recurring) (ONCR) | payer BC, SELFPAY ==
[2022-11-24] VITALS (8 sets, daily range): BP systolic 121–132; BP diastolic 87–96; PULSE 81–105; RESP 18; TEMP 36.1–36.7; O2SAT 96–99
--- NOTE | 2022-11-24 08:23 | ECG_ITS ---
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 Measurements Intervals [place] Rate: 110 P: 0 WV: 0 QRS: 5 QRSD: 85 T: 24 QT: 337 QTc: 457 Interpretive Statements ATRIAL FIBRILLATION WITH RAPID VENTRICULAR RESPONSE No previous ECG available for comparison Electronically Signed On 11-24-2022 10:28:37 FUEL CELL BINDER by Wilfredo Tavera M.D. [id number]
[2022-11-24 08:50] LABS: Basophils % 0.4 %; Eosinophils # 0.2 10^3/uL (0.0-0.8); Eosinophils % 3.8 %; Hematocrit 39.3 % (42.0-52.0); Hemoglobin 12.6 g/dL (11.7-16.6); Mean Corpuscular HGB Conc 32.1 g/dL (30.0-36.0); Mean Corpuscular Hemoglobin 27.6 pg (28.0-34.0); Mean Platelet Volume 8.7 fL (7.4-10.4); Monocytes # 0.7 10^3/uL (0.2-0.9); Monocytes % 12.8 %; Neutrophils # 2.56 10^3/uL (1.8-7.7); Neutrophils % 46.8 %; Nucleated Red Blood Cells % 0 %; Platelet Count 216 10^3/cmm (130-400); Red Blood Count 4.57 10^6/uL (4.1-5.3); Red Cell Distribution Width 14.3 % (12.1-15.1); White Blood Count 5.5 10^3/uL (4.0-10.0)
[2022-11-24] MEDS: sodium chloride 0.9% 250 ML 50 ML IV (09:08)
[2022-11-24] MEDS: acetaminophen 325 mg Tablet 650 MG PO (09:09)
[2022-11-24] MEDS: diphenhydrAMINE 25 mg Capsule PO (09:10)
[2022-11-24 09:37] LABS: Alanine Aminotransferase 29 U/L (0-41); Albumin Level 3.6 g/dL (3.5-5.2); Alkaline Phosphatase 160 U/L (40-130); Anion Gap 11.8 (5-19); Aspartate Amino Transferase 28 U/L (0-40); Blood Urea Nitrogen 17 mg/dL (6-20); Calcium 8.7 mg/dL (8.5-10.5); Carbon Dioxide 27 mmol/L (22-29); Chloride 101 mmol/L (98-107); Globulin 2.5 g/dL (1.3-4.6); Glomerular Filtration Rate 98.9 mL/min (90-130); Glucose 83 mg/dL (65-115); Osmolality Calculated 281 mOsm/kg (285-295); Potassium 4.8 mmol/L (3.5-5.1); Sodium 135 mmol/L (136-145); Total Bilirubin 0.2 mg/dL (0.15-1.2); Total Protein 6.1 g/dL (6.6-8.7)
[2022-11-24 10:02] LABS: Lactate Dehydrogenase 233 U/L (135-225)
== END 2022-11-30 23:59 | disposition home or self-care (01) ==
PROVIDERS: PCP Nurse Practitioner Family; Visit Provider Internal Medicine Medical Oncology
DX: D80.1 Nonfamilial hypogammaglobulinemia (principal); Z79.899 Other long term (current) drug therapy; I48.91 Unspecified atrial fibrillation; C83.59 Lymphoblastic (diffuse) lymphoma, extranodal and solid organ sites
CPT/HCPCS: 80053; 83615; 85025; 93005; 96365; 96366; J1561; J7050

== ENCOUNTER 2022-12-22 10:51 | Oncology outpatient (recurring) (ONCR) | payer BC, SELFPAY ==
[2022-12-22] MEDS: sodium chloride 0.9% 250 ML 100 ML IV (11:10)
[2022-12-22] MEDS: acetaminophen 325 mg Tablet 650 MG PO (11:14)
[2022-12-22] MEDS: diphenhydrAMINE 25 mg Capsule PO (11:14)
[2022-12-22 11:35] VITALS: BP 102/70; PULSE 99; RESP 14; TEMP 36.7; O2SAT 96
[2022-12-22 11:50] VITALS: BP 95/64; PULSE 103; TEMP 36.3; O2SAT 93
[2022-12-22 12:05] VITALS: BP 98/73; PULSE 92; TEMP 36.2; O2SAT 95
[2022-12-22 12:20] VITALS: BP 106/72; PULSE 71; TEMP 36.4; O2SAT 95
[2022-12-22 12:50] VITALS: BP 108/72; PULSE 97; TEMP 36.6; O2SAT 95
[2022-12-22 14:03] VITALS: BP 114/71; PULSE 98; TEMP 36.2; O2SAT 96
== END 2022-12-31 23:59 | disposition home or self-care (01) ==
LOC: ONCMED 10:51
PROVIDERS: PCP Nurse Practitioner Family; Visit Provider Internal Medicine Medical Oncology
DX: D80.1 Nonfamilial hypogammaglobulinemia (principal); Z79.899 Other long term (current) drug therapy
CPT/HCPCS: 96365; 96366; J1561; J7050

== ENCOUNTER 2022-12-29 13:12 | Inpatient (IN) | payer BC, SELFPAY ==
[2022-12-29] VITALS (13 sets, daily range): BP systolic 126–150; BP diastolic 85–111; PULSE 78–122; RESP 12–20; TEMP 36.6–36.7; O2SAT 93–99; BMI 26.1
[2022-12-29] MEDS: dilTIAZem 5 mg/mL SDV 5 mL 20 MG IVP (13:30)
--- NOTE | 2022-12-29 13:35 | ECG_ITS ---
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 Measurements Intervals [place] Rate: 95 P: 0 SC: 0 QRS: 13 QRSD: 93 T: 27 QT: 364 QTc: 458 Interpretive Statements ATRIAL FIBRILLATION NONSPECIFIC T-WAVE ABNORMALITY ABNORMAL RHYTHM ECG Compared to ECG 11/24/2022 08:39:45 T-wave abnormality now present Electronically Signed On 12-29-2022 23:53:51 CDT by Bonnie Jacobsen M.D. [email or web address]
[2022-12-29 13:55] LABS: Add Urine Microscopic? NO; Charge for UA Resulting for Rev
--- NOTE | 2022-12-29 13:58 | ECG_ITS ---
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 Measurements Intervals [place] Rate: 92 P: 0 AR: 0 QRS: 8 QRSD: 105 T: 8 QT: 387 QTc: 479 Interpretive Statements ATRIAL FIBRILLATION NONSPECIFIC T-WAVE ABNORMALITY ABNORMAL RHYTHM ECG Compared to ECG 12/29/2022 13:35:59 No significant changes Electronically Signed On 12-29-2022 23:53:55 CDT by Bonnie Jacobsen M.D. [email or web address]
--- NOTE | 2022-12-29 13:59 | W.ED.ARRPALP ---
HPI - Arrhythmia/Palpitations General: Chief Complaint: Arrhythmia/Palpitations Stated Complaint: Sent from [facility] heart issues Time Seen by Provider: 12/29/22 13:23 Source: patient Mode of arrival: ambulatory History of Present Illness: 57-year-old male, he was seen today by Dr. Tavera in the clinic and found to be in A-fib with RVR he has a known history of A-fib with RVR normally is on metoprolol and is also on Xarelto. He is having some chronic neck discomfort is not new or different has not had any chest pain Dr. Flannery called over there planning to place him on observation and do a synchronized cardioversion tomorrow. 57-year-old male presents to the emergency room with complaints of rapid heart rate. MD complaint: rapid heart beat and heart racing Duration: constant Severity: mild Context: occurred during rest Arrhythmia history: atrial fibrillation Associated symptoms: Deny anxiety, cough, diaphoresis, muscle cramps, nausea, paresthesias, pre-syncope, sense of impending doom, short of breath, syncope or vomiting Review of Systems Const: Denies: fever(s), chills, fatigue, malaise or diaphoresis ENMT: Denies: throat pain, ear or mastoid pain, nasal discharge or nasal congestion Card: Reports: palpitations and irregular heart rhythm; Denies: chest pain, edema, swelling of feet/ankles, syncope or pre-syncope Resp: Denies: dyspnea, productive cough or non-productive cough GI: Denies: nausea or vomiting : Denies: flank pain, dysuria, urinary frequency or urinary urgency Musc: Reports: neck pain (Chronic); Denies: muscle cramps Skin/Breast: Denies: rash or pruritus Psych: Denies: anxiety PFSH ED PFSH: Medical History Atrial fibrillation BPH (benign prostatic hyperplasia) Chronic anxiety Chronic pain Daytime hypersomnia Hypertension Hypogammaglobulinemia Mantle cell lymphoma MARLI (obstructive sleep apnea) Surgical History History of appendectomy History of lymph node biopsy (04/24/20) FNA biopsy of left axillary lymph node S/P thyroid biopsy (12/24/20) FNA biopsy of left thyroid lobe nodule Family History Sister Cancer Mother Hypertension CAD (coronary artery disease) Father Alzheimer disease Denies family history of Diabetes Clotting disorder Dementia Hyperlipidemia Psychiatric illness Chronic kidney disease (CKD) Suicide Anesthesia complication Bleeding disorder Lung disease Stroke Social History Smoking and tobacco status: never smoked Quit status (tobacco): has quit using tobacco Former quit date comment: chewed 0.5- 1 ppd Second hand smoke exposure: No Alcohol intake: former Year of sobriety/quit date alcohol: 2019 Former alcohol use details: drank mostly beer Lives independently: Yes Marital status: service: No Current occupational status: employed Current occupation: [employer] Current gender identity: Male Special fredy needs: No Agree to transfusion: Yes Physical Exam Const: GENERAL APPEARANCE: cooperative and comfortable ORIENTATION/CONSCIOUSNESS: Yes awake, Yes oriented to person, Yes oriented to place and Yes oriented to time HENMT: COMMON NORMALS: normocephalic, atraumatic and hearing grossly normal bilaterally HEAD & SCALP: normocephalic and atraumatic Resp: COMMON NORMALS: normal respiratory effort, No retractions, No use of accessory muscles and clear to auscultation bilaterally AUSCULTATION: clear to auscultation bilaterally Cardio: COMMON NORMALS: No murmurs present (Cardio) RATE: tachycardic RHYTHM: abnormal rhythm irregularly irregular GI: COMMON NORMALS: Soft to palpation and No hepatosplenomegaly present AUSCULTATION: Yes normoactive bowel sounds PALPATION: Yes Soft to palpation, No Tenderness to palpation present (GI), No Guarding due to palpation present (GI) and Yes No hepatosplenomegaly present Extremity: COMMON NORMALS: normal to inspection, capillary refill normal, no clubbing, cyanosis or edema, no calf tenderness and no pedal edema Neuro: SENSORIUM/ORIENTATION: Yes oriented to person, Yes oriented to place and Yes oriented to time Skin: COMMON NORMALS: no rashes or lesions noted GENERAL SKIN EXAM: no rashes or lesions noted Course Vital Signs: Vital signs: Vital Signs Temperature 98.0 F 12/29/22 15:37 Pulse Rate 93 12/29/22 15:37 Respiratory Rate 14 12/29/22 15:37 Blood Pressure 137/103 12/29/22 15:37 Pulse Oximetry 99 12/29/22 15:37 Oxygen Delivery Me thod 12/29/22 15:37 MDM - Arrhythmia/Palpitations Medical Decision Making Patient has longstanding history of atrial fibrillation Dr. Arana and called the head head the patient in clinic he is in A-fib with RVR. Asked that we start Cardizem and place in observation for cardioversion. On arrival here patient in A-fib with RVR he was given 20 mg IV push Cardizem and then started to drip at 2.5 mg his main pain good control below 100. He is asymptomatic this time discussed with hospitalist orders written consult Dr. Arana. Medical Records I reviewed the patient's medical records. Lab Data I reviewed the patient's lab results. 12/29/22 13:37 12/29/22 13:37 Radiology Impressions Chest X-Ray 12/29/22 14:09 IMPRESSION: 1. No acute cardiopulmonary finding. Laboratory Results WBC 7.1 10^3/uL (4.0-10.0) 12/29/22 13:37 RBC 4.77 10^6/uL (4.1-5.3) 12/29/22 13:37 Hgb 12.8 g/dL (11.7-16.6) 12/29/22 13:37 Hct 40.4 % (42.0-52.0) L 12/29/22 13:37 MCV 84.7 fl (80-94) 12/29/22 13:37 MCH 26.8 pg (28.0-34.0) L 12/29/22 13:37 MCHC 31.7 g/dL (30.0-36.0) 12/29/22 13:37 RDW 14.4 % (12.1-15.1) 12/29/22 13:37 Plt Count 289 10^3/cmm (130-400) 12/29/22 13:37 MPV 8.9 fL (7.4-10.4) 12/29/22 13:37 Neut % (Auto) 52.9 % 12/29/22 13:37 Lymph % (Auto) 32.9 % 12/29/22 13:37 [place] % (Auto) 9.5 % 12/29/22 13:37 Eos % (Auto) 3.8 % 12/29/22 13:37 Baso % (Auto) 0.6 % 12/29/22 13:37 Neut # (Auto) 3.74 10^3/uL (1.8-7.7) 12/29/22 13:37 Lymph # (Auto) 2.3 10^3/uL (0.8-4.8) 12/29/22 13:37 [place] # (Auto) 0.7 10^3/uL (0.2-0.9) 12/29/22 13:37 Eos # (Auto) 0.3 10^3/uL (0.0-0.8) 12/29/22 13:37 Baso # (Auto) 0.0 10^3/uL (0.0-0.1) 12/29/22 13:37 Nucleated RBC % (auto) 0 % 12/29/22 13:37 Nucleated RBCs # 0.0 /100WBC 12/29/22 13:37 Sodium 140 mmol/L (136-145) 12/29/22 13:37 Potassium 3.9 mmol/L (3.5-5.1) 12/29/22 13:37 Chloride 103 mmol/L (98-107) 12/29/22 13:37 Carbon Dioxide 28 mmol/L (22-29) 12/29/22 13:37 Anion Gap 12.9 (5-19) 12/29/22 13:37 BUN 17 mg/dL (6-20) 12/29/22 13:37 Creatinine 0.8 mg/dL (0.7-1.2) 12/29/22 13:37 GFR Calculation 98.9 mL/min (90-130) 12/29/22 13:37 Glucose 81 mg/dL (65-115) 12/29/22 13:37 Calculated Osmolality 291 mOsm/kg (285-295) 12/29/22 13:37 Calcium 8.9 mg/dL (8.5-10.5) 12/29/22 13:37 Total Bilirubin 0.2 mg/dL (0.15-1.2) 12/29/22 13:37 AST 14 U/L (0-40) 12/29/22 13:37 ALT 9 U/L (0-41) 12/29/22 13:37 Alkaline Phosphatase 139 U/L (40-130) H 12/29/22 13:37 Troponin T Baseline 11 ng/L (0-15) 12/29/22 13:37 Troponin T 120 Minute 11.72 ng/L (0-15) 12/29/22 15:05 Delta Troponin T 0.72 ABS# (0-10) 12/29/22 15:05 Total Protein 6.8 g/dL (6.6-8.7) 12/29/22 13:37 Albumin 3.8 g/dL (3.5-5.2) 12/29/22 13:37 Globulin 3.0 g/dL (1.3-4.6) 12/29/22 13:37 Urine Color Yellow (Yellow) 12/29/22 13:47 Urine Appearance Clear (CLEAR) 12/29/22 13:47 Urine pH 5 (5-7) 12/29/22 13:47 Ur Specific [place] 1.020 (1.005-1.030) 12/29/22 13:47 Urine Protein Neg (Negative) 12/29/22 13:47 Urine Glucose (UA) Norm (Normal) 12/29/22 13:47 Urine Ketones Negative (Negative) 12/29/22 13:47 Urine Blood Neg (Negative) 12/29/22 13:47 Urine Nitrate Negative (Negative) 12/29/22 13:47 Urine Bilirubin 1+ (Negative) H 12/29/22 13:47 Urine Urobilinogen Neg mg/dL (Negative) 12/29/22 13:47 Ur Leukocyte Esterase Negative (Negative) 12/29/22 13:47 Discharge Plan Discharge Patient Disposition: Admitted As Inpatient Admit Provider: Oumar Francois Clinical Impression: Atrial fibrillation with RVR Condition: Stable Coding Level of Care Code ED Sybase Developer for Petra Thomas
[2022-12-29 14:00] LABS: Bilirubin Urine 1+ (Negative); Blood Urine Neg (Negative); Glucose Urine UA Norm (Normal); Ketones Urine Negative (Negative); Leukocyte Esterase Urine Negative (Negative); Nitrate Urine Negative (Negative); Protein Urine Neg (Negative); Urine Appearance Clear (CLEAR); Urine Color Yellow (Yellow); Urobilinogen Urine Neg (Negative); pH Urine 5 (5-7)
[2022-12-29 14:00] LABS: Basophils % 0.6 %; Eosinophils # 0.3 10^3/uL (0.0-0.8); Eosinophils % 3.8 %; Hematocrit 40.4 % (42.0-52.0); Hemoglobin 12.8 g/dL (11.7-16.6); Lymphocytes # 2.3 10^3/uL (0.8-4.8); Lymphocytes % 32.9 %; Mean Corpuscular HGB Conc 31.7 g/dL (30.0-36.0); Mean Corpuscular Hemoglobin 26.8 pg (28.0-34.0); Mean Corpuscular Volume 84.7 fl (80-94); Mean Platelet Volume 8.9 fL (7.4-10.4); Monocytes # 0.7 10^3/uL (0.2-0.9); Monocytes % 9.5 %; Neutrophils # 3.74 10^3/uL (1.8-7.7); Neutrophils % 52.9 %; Nucleated Red Blood Cells % 0 %; Platelet Count 289 10^3/cmm (130-400); Red Blood Count 4.77 10^6/uL (4.1-5.3); Red Cell Distribution Width 14.4 % (12.1-15.1); White Blood Count 7.1 10^3/uL (4.0-10.0)
[2022-12-29] MEDS: dilTIAZem 100 MG in sodium chloride 0.9% (add-van) 100 ML IV (14:08)
--- NOTE | 2022-12-29 14:08 | PC.NURSE ---
DR. LUO GAVE VERBAL ORDER TO START CARDIZEM DRIP AT 2.5ML/HR ORDER VERBALIZED BACK AND CONFIRMED.
--- NOTE | 2022-12-29 14:09 | XR_ITS ---
WS: [id number] Exam: XR chest 1V portable [id number] Date/Time of Exam: 12/29/2022 2:11 PM Reason For Exam: dyspnea Comparison 10/29/2022. The lungs are clear and fully expanded. Cardiomediastinal silhouette is unremarkable for technique. B sanna structures are intact. No pleural effusions. Monitoring leads superimpose the chest. XR/XR chest 1V portable [id number] IMPRESSION: 1. No acute cardiopulmonary finding.
[2022-12-29 14:24] LABS: Troponin(5th) Baseline 11 ng/L (0-15)
[2022-12-29 14:26] LABS: Alanine Aminotransferase 9 U/L (0-41); Albumin Level 3.8 g/dL (3.5-5.2); Alkaline Phosphatase 139 U/L (40-130); Anion Gap 12.9 (5-19); Aspartate Amino Transferase 14 U/L (0-40); Blood Urea Nitrogen 17 mg/dL (6-20); Calcium 8.9 mg/dL (8.5-10.5); Carbon Dioxide 28 mmol/L (22-29); Chloride 103 mmol/L (98-107); Glomerular Filtration Rate 98.9 mL/min (90-130); Glucose 81 mg/dL (65-115); Osmolality Calculated 291 mOsm/kg (285-295); Potassium 3.9 mmol/L (3.5-5.1); Sodium 140 mmol/L (136-145); Total Bilirubin 0.2 mg/dL (0.15-1.2); Total Protein 6.8 g/dL (6.6-8.7)
--- NOTE | 2022-12-29 14:35 | PC.NURSE ---
PT PLACED ON CONTINUOUS NIBP, SPO2, AND CM
--- NOTE | 2022-12-29 15:25 | ECG_ITS ---
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 Measurements Intervals [place] Rate: 99 P: 0 NC: 0 QRS: 18 QRSD: 92 T: 26 QT: 383 QTc: 492 Interpretive Statements ATRIAL FIBRILLATION NONSPECIFIC ST & T-WAVE ABNORMALITY ABNORMAL RHYTHM ECG Compared to ECG 12/29/2022 13:58:02 No significant changes Electronically Signed On 12-30-2022 0:00:57 CDT by Bonnie Jacobsen M.D. [id number]
[2022-12-29 15:31] LABS: Troponin 5 2HR 11.72 ng/L (0-15)
[2022-12-29 15:33] LABS: Troponin 5 2HR Delta 0.72 ABS# (0-10)
--- NOTE | 2022-12-29 15:43 | PM.HP ---
Providers/Chief Complaint Admitting Physician: Oumar Francois MD Primary Care Provider: RENÉE Cates Chief Complaint: Sent from [facility], heart issues History of Present Illness Sammy Dykes (Jed) is a 57 year old male with pmh of a.fib,htn sleep apnea, was seen by his primary clinical applications specialist today as patient where he was found to be in a.fib with rvr,and was sent to ER for the management of same.In Er he was started on cardizem drip.lately patient has been complaining of increasing SOB as well as fatigue, he denied any chest pain. Recent event monitor : has shown an average H/R of 132 EKG: Showed A.Fib with rvr Xray chest : no acute findings pertinent labs: WBC:9.5 H&H: PLT : 249 Na: 135 K:4.5 BUN/SCR : 14/0.8 Review of Systems General: Reports: 10 or more systems reviewed and unremarkable except in HPI and below Const: Denies: fever(s), chills, body aches, change in appetite or diaphoresis Card: Reports: palpitations; Denies: edema, swelling of feet/ankles, dyspnea on exertion, orthopnea or leg pain with exertion Resp: Reports: dyspnea; Denies: productive cough, wheezing or pain on inspiration GI: Denies: abdominal pain, nausea, vomiting, diarrhea or constipation : Denies: flank pain or difficulty urinating Musc: Denies: back pain, extremity pain or extremity swelling Neuro: Denies: headache(s), difficulty walking or confusion Medications/Allergies Home Medications Medication Instructions Recorded Confirmed Last Taken Type oxycodone 10 mg tablet 10 mg PO BID PRN Pain 02/29/20 12/29/22 Unknown History prochlorperazine maleate 10 mg 10 mg PO Q6H PRN Nausea 04/24/21 12/29/22 Unknown History tablet (Compazine) gabapentin 300 mg capsule 300 - 600 mg PO Q8H 07/02/21 12/29/22 12/29/22 History nebulizer machine, mask, tubing #1 ea 09/15/21 12/29/22 Unknown Rx ondansetron HCl 8 mg tablet 8 mg PO Q12H PRN Nausea 02/04/22 12/29/22 Unknown History duloxetine 30 mg capsule,delayed See Rx Instructions .Route 09/10/22 12/29/22 12/29/22 Rx release .COMPLEX #90 caps famotidine 20 mg tablet See Rx Instructions .Route 09/10/22 12/29/22 12/29/22 Rx .COMPLEX #90 tabs hydroxyzine HCl 25 mg tablet See Rx Instructions .Route 09/10/22 12/29/22 Unknown Rx .COMPLEX #270 tabs loratadine 10 mg tablet (Allergy 10 mg PO DAILY PRN allergy 09/10/22 12/29/22 Unknown Rx Relief (loratadine)) symptoms #90 tabs meloxicam 15 mg tablet See Rx Instructions .Route 09/10/22 12/29/22 12/29/22 Rx .COMPLEX #90 tabs methocarbamol 750 mg tablet 750 mg PO QID 09/10/22 12/29/22 12/29/22 History modafinil 200 mg tablet 200 mg PO .COMPLEX #45 tabs 09/10/22 12/29/22 12/29/22 Rx warodzep-zcnkhcxpq-ctueympb 3.5 1 drp ophthalmic (eye) Q8H 10 days 09/10/22 12/29/22 Unknown Rx mg/mL-10,000 unit/mL-0.1% eye #5 mL drops (Maxitrol) rivaroxaban 20 mg tablet (Xarelto) See Rx Instructions .Route 09/10/22 12/29/22 12/29/22 Rx .COMPLEX #90 tabs tamsulosin 0.4 mg capsule See Rx Instructions .Route 09/10/22 12/29/22 12/29/22 Rx .COMPLEX #90 caps immune glob G 40 gram/400 400 ml IV Q28D #400 mL 09/28/22 12/29/22 Unknown Rx mL(10%)-gly-IgA ave 46 mcg/mL injection soln (Gamunex-C) albuterol sulfate 2.5 mg/3 mL 2.5 mg (3 mL) inhalation QID PRN 10/21/22 12/29/22 Unknown Rx (0.083 %) solution for nebulization shortness of breath or wheezing #180 mL budesonide-formoterol HFA 160 2 puff inhalation BID #10.2 grams 10/21/22 12/29/22 12/29/22 Rx mcg-4.5 mcg/actuation aerosol inhaler (Symbicort) fluticasone propionate 50 2 spray intranasal DAILY #16 grams 10/21/22 12/29/22 12/29/22 Rx mcg/actuation nasal spray,suspension (Flonase Allergy Relief) metoprolol tartrate 50 mg tablet 50 mg PO BID #180 tabs 11/24/22 12/29/22 12/29/22 Rx albuterol sulfate 90 mcg/actuation See Rx Instructions .Route 12/14/22 12/29/22 Unknown Rx aerosol inhaler .COMPLEX #8.5 grams Allergies Allergy/AdvReac Type Severity Reaction Status Date / Time Penicillins AdvReac nausea Verified 12/29/22 12:43 PFSH Acute PFSH: Medical History Atrial fibrillation BPH (benign prostatic hyperplasia) Chronic anxiety Chronic pain Daytime hypersomnia Hypertension Hypogammaglobulinemia Mantle cell lymphoma MARLI (obstructive sleep apnea) Surgical History History of appendectomy History of lymph node biopsy (04/24/20) FNA biopsy of left axillary lymph node S/P thyroid biopsy (12/24/20) FNA biopsy of left thyroid lobe nodule Family History Sister Cancer Mother Hypertension CAD (coronary artery disease) Father Alzheimer disease Denies family history of Diabetes Clotting disorder Dementia Hyperlipidemia Psychiatric illness Chronic kidney disease (CKD) Suicide Anesthesia complication Bleeding disorder Lung disease Stroke Social History Smoking and tobacco status: never smoked Quit status (tobacco): has quit using tobacco Former quit date comment: chewed 0.5- 1 ppd Second hand smoke exposure: No Alcohol intake: former Year of sobriety/quit date alcohol: 2019 Former alcohol use details: drank mostly beer Lives independently: Yes Marital status: service: No Current occupational status: employed Current occupation: [employer] Current gender identity: Male Special fredy needs: No Agree to transfusion: Yes Vitals/I&O/Wt Last Vital Signs Temp 97.8 F 12/29/22 13:17 Pulse 98 12/29/22 14:30 Resp 12 12/29/22 14:30 BP 150/97 12/29/22 14:30 Pulse Ox 97 12/29/22 14:30 O2 Del Method 12/29/22 13:17 Weight last 48 hrs Weight 89.811 kg Physical Exam Const: COMMON NORMALS: patient oriented x3 HENMT: COMMON NORMALS: normocephalic and atraumatic Resp: COMMON NORMALS: clear to auscultation bilaterally EFFORT & INSPECTION: Yes symmetric chest movement AUSCULTATION: clear to auscultation bilaterally Cardio: COMMON NORMALS: No gallops present (Cardio), No murmurs present (Cardio), No rub (Cardio) and Peripheral pulses 2+ throughout PERIPHERAL PULSES: Peripheral pulses 2+ throughout OTHER: Irregularly irregular rhythm S1-S2 variable intensity GI: COMMON NORMALS: Normal to inspection, nondistended, normoactive bowel sounds present, Soft to palpation, non-tender, No hepatosplenomegaly present and no masses AUSCULTATION: Yes normoactive bowel sounds PALPATION: Yes Soft to palpation and Yes No hepatosplenomegaly present RECTAL EXAM: Yes deferred Extremity: COMMON NORMALS: no clubbing, cyanosis or edema and no pedal edema Neuro: COMMON NORMALS: patient oriented x3 Data 12/29/22 13:37 12/29/22 13:37 A&P Assessment and plan (1) Atrial fibrillation with RVR: (2) Chronic interstitial lung disease: (3) Hypertension: Qualifiers: Hypertension type: essential hypertension Qualified Code(s): I10 - Essential (primary) hypertension (4) MARLI (obstructive sleep apnea): (5) Daytime hypersomnia: Plan 57 year old male with pmh of a.fib,htn sleep apnea, was seen by his primary clinical applications specialist today as patient where he was found to be in a.fib with rvr,and was sent to ER for the management of same.In Er he was started on cardizem drip.lately patient has been complaining of increasing SOB as well as fatigue. Assessment : A.Fib with RVR : Continue cardizem drip has been restarted back on home dose of po metoprolol, cardiology as has started the patient on po amiodarone. continue xaralto for AC. Continue Telemetry monitoring Cardiology on board code status: Full code DVT PPX: Not needed on full dose Ac with xaralto, will suffice for dvt ppx. Attestations Medical Necessity Statement*: Patient is in hospital management of symptomatic A-fib with RVR. Anticipated length of stay Greater than 2 midnights Coding Level of Care Code 60378 Diagnoses Atrial fibrillation with RVR I48.91 Chronic interstitial lung disease J84.9 Hypertension I10 Hypertension type: essential hypertension MARLI (obstructive sleep apnea) G47.33 Daytime hypersomnia G47.19
[2022-12-29] MEDS: oxyCODONE 5 mg IR Tab/Cap 10 MG PO ×3 (16:10→23:55)
[2022-12-29] MEDS: famotidine 20 mg Tablet PO (16:11)
[2022-12-29] MEDS: tamsulosin 0.4 mg Capsule PO (16:11)
[2022-12-29] MEDS: duloxetine 30 mg Capsule PO (16:11)
[2022-12-29] MEDS: sodium chloride 0.9% 1,000 ML 100 ML IV ×2 (16:32→23:59)
[2022-12-29] MEDS: albuterol 2.5 mg/3 mL Neb INHALATION ×2 (16:52→20:10)
[2022-12-29] MEDS: metoprolol tartrate 50 mg Tablet PO (17:30)
--- NOTE | 2022-12-29 17:34 | P.CONIM_ITS ---
Providers/Reason For Consult Consulting Physician/Specialty*: Wilfredo Tavera MD/ Cardiology Reason for Consult*: Afib with RVR Requesting Physician: Dr Perez Attending Physician: Oumar Francois MD Primary Care Provider: RENÉE Cates History of Present Illness History of Present Illness 57-year-old man with recent diagnosis of atrial fibrillation was seen today in the office. His heart rate was 130s. Has been feeling fatigue and shortness of breath. Has occasional neck discomfort. Has been given Cardizem in the ER and heart rate has improved somewhat. His event monitor recently shows A-fib with RVR with average rate of 128 bpm. Review of Systems Narrative: CONSTITUTIONAL: No fever chills weight loss or gain or night sw eats. [] HEENT: Normocephalic, atraumatic.[] RESPIRATORY: Shortness of breath CARDIOVASCULAR: Has shortness of breath and fatigue. GI: no nausea vomiting diarrhea. [] FIN[employer]: No numbness, tingling, weakness or loss of function in any part of the body. [] MUSCULOSKELETAL: No knee or joint pain or rashes. [] Medications/Allergies Home Medications Medication Instructions Recorded Confirmed Last Taken Type oxycodone 10 mg tablet 10 mg PO Q4H PRN Pain 02/29/20 12/29/22 Unknown History prochlorperazine maleate 10 mg 10 mg PO Q6H PRN Nausea 04/24/21 12/29/22 Unknown History tablet (Compazine) gabapentin 300 mg capsule 300 - 600 mg PO Q8H 07/02/21 12/29/22 12/29/22 History nebulizer machine, mask, tubing #1 ea 09/15/21 12/29/22 Unknown Rx ondansetron HCl 8 mg tablet 8 mg PO Q12H PRN Nausea 02/04/22 12/29/22 Unknown History duloxetine 30 mg capsule,delayed See Rx Instructions .Route 09/10/22 12/29/22 12/29/22 Rx release .COMPLEX #90 caps famotidine 20 mg tablet See Rx Instructions .Route 09/10/22 12/29/22 12/29/22 Rx .COMPLEX #90 tabs hydroxyzine HCl 25 mg tablet See Rx Instructions .Route 09/10/22 12/29/22 Unknown Rx .COMPLEX #270 tabs loratadine 10 mg tablet (Allergy 10 mg PO DAILY PRN allergy 09/10/22 12/29/22 Unknown Rx Relief (loratadine)) symptoms #90 tabs meloxicam 15 mg tablet See Rx Instructions .Route 09/10/22 12/29/22 12/29/22 Rx .COMPLEX #90 tabs methocarbamol 750 mg tablet 750 mg PO QID 09/10/22 12/29/22 12/29/22 History modafinil 200 mg tablet 200 mg PO .COMPLEX #45 tabs 09/10/22 12/29/22 12/29/22 Rx ezywnktw-wmhepmwgr-dnasyhxt 3.5 1 drp ophthalmic (eye) Q8H 10 days 09/10/22 12/29/22 Unknown Rx mg/mL-10,000 unit/mL-0.1% eye #5 mL drops (Maxitrol) rivaroxaban 20 mg tablet (Xarelto) See Rx Instructions .Route 09/10/22 12/29/22 12/29/22 Rx .COMPLEX #90 tabs tamsulosin 0.4 mg capsule See Rx Instructions .Route 09/10/22 12/29/22 12/29/22 Rx .COMPLEX #90 caps immune glob G 40 gram/400 400 ml IV Q28D #400 mL 09/28/22 12/29/22 Unknown Rx mL(10%)-gly-IgA ave 46 mcg/mL injection soln (Gamunex-C) albuterol sulfate 2.5 mg/3 mL 2.5 mg (3 mL) inhalation QID PRN 10/21/22 12/29/22 Unknown Rx (0.083 %) solution for nebulization shortness of breath or wheezing #180 mL budesonide-formoterol HFA 160 2 puff inhalation BID #10.2 grams 10/21/22 12/29/22 12/29/22 Rx mcg-4.5 mcg/actuation aerosol inhaler (Symbicort) fluticasone propionate 50 2 spray intranasal DAILY #16 grams 10/21/22 12/29/22 12/29/22 Rx mcg/actuation nasal spray,suspension (Flonase Allergy Relief) metoprolol tartrate 50 mg tablet 50 mg PO BID #180 tabs 11/24/22 12/29/22 12/29/22 Rx albuterol sulfate 90 mcg/actuation See Rx Instructions .Route 12/14/22 12/29/22 Unknown Rx aerosol inhaler .COMPLEX #8.5 grams Allergies Allergy/AdvReac Type Severity Reaction Status Date / Time Penicillins AdvReac nausea Verified 12/29/22 12:43 Current Medications Generic Name Dose Route Start Last Admin Trade Name Freq PRN Reason Stop Dose Admin Albuterol Sulfate 2.5 mg 12/29/22 16:00 12/29/22 16:52 Albuterol 2.5 Mg/3 Ml Neb INHALATION 2.5 mg QID.RESPIRATORY FELICIA Administration Duloxetine HCl 30 mg 12/29/22 16:30 12/29/22 16:11 Duloxetine 30 Mg Capsule PO 30 mg DAILY FELICIA Administration Famotidine 20 mg 12/29/22 16:30 12/29/22 16:11 Famotidine 20 Mg Tablet PO 20 mg DAILY FELICIA Administration Diltiazem HCl 100 mg/ Sodium 100 mls @ 0 mls/hr 12/29/22 13:30 12/29/22 17:02 Chloride IV 5 mg/hr .Q0M FELICIA 5 mls/hr Titration Protocol Per Protocol Sodium Chloride 1,000 mls @ 100 mls/hr 12/29/22 15:41 12/29/22 16:32 Sodium Chloride 0.9% IV 100 mls/hr .Q10H FELICIA Administration Metoprolol Tartrate 50 mg 12/29/22 18:00 12/29/22 17:30 Metoprolol Tartrate 50 Mg Tablet PO 50 mg BID FELICIA Administration Oxycodone HCl 10 mg 12/29/22 15:45 12/29/22 16:10 Oxycodone 5 Mg Ir Tab/Cap PO 10 mg BID PRN Administration SEVERE PAIN Tamsulosin HCl 0.4 mg 12/29/22 16:30 12/29/22 16:11 Tamsulosin 0.4 Mg Capsule PO 0.4 mg DAILY FELICIA Administration PFSH Acute PFSH: Medical History Atrial fibrillation BPH (benign prostatic hyperplasia) Chronic anxiety Chronic pain Daytime hypersomnia Hypertension Hypogammaglobulinemia Mantle cell lymphoma MARLI (obstructive sleep apnea) Surgical History History of appendectomy History of lymph node biopsy (04/24/20) FNA biopsy of left axillary lymph node S/P thyroid biopsy (12/24/20) FNA biopsy of left thyroid lobe nodule Family History Sister Cancer Mother Hypertension CAD (coronary artery disease) Father Alzheimer disease Denies family history of Diabetes Clotting disorder Dementia Hyperlipidemia Psychiatric illness Chronic kidney disease (CKD) Suicide Anesthesia complication Bleeding disorder Lung disease Stroke Social History Smoking and tobacco status: never smoked Quit status (tobacco): has quit using tobacco Former quit date comment: chewed 0.5- 1 ppd Second hand smoke exposure: No Alcohol intake: former Year of sobriety/quit date alcohol: 2019 Former alcohol use details: drank mostly beer Lives independently: Yes Marital status: service: No Current occupational status: employed Current occupation: [employer] Current gender identity: Male Special fredy needs: No Agree to transfusion: Yes Vitals/I&O/Wt Last Vital Signs Temp 98.0 F 12/29/22 15:37 Pulse 120 H 12/29/22 17:01 Resp 16 12/29/22 16:54 BP 137/103 12/29/22 15:37 Pulse Ox 93 12/29/22 16:54 O2 Del Method 12/29/22 16:54 12/29/22 12/29/22 12/29/22 06:59 14:59 22:59 Intake Total 7.25 / 7.25 Balance 7.25 / 7.25 Weight last 48 hrs Weight 198 lb Physical Exam Narrative: GENERAL: Patient is alert, awake and oriented x3. [] NECK: No jugular vein distension. [] HEENT: No cyanosis. No icterus. No pallor. [] HEART:Irregularly irregular, tachycardia LUNGS: Clear to auscultate bilaterally. [] ABDOMEN: Soft, nontender and nondistended. Positive bowel sounds. No guarding, rebound or tenderness. [] CENTRAL NERVOUS SYSTEM: Grossly nonfocal. [] EXTREMITIES: Lower extremities with 1+ edema bilaterally. Pulses palpable in the lower extremities, both dorsalis pedis and posterior tibial. [] Data 12/29/22 13:37 12/29/22 13:37 A&P Assessment and plan (1) Atrial fibrillation with RVR: (2) Chronic interstitial lung disease: (3) Hypertension: Qualifiers: Hypertension type: essential hypertension Qualified Code(s): I10 - Essential (primary) hypertension (4) MARLI (obstructive sleep apnea): Plan Patient has been sent from office to ER for A-fib with RVR. Continue anticoagulation with Xarelto. Continue Cardizem. We will put him on amiodarone 400 twice daily. Plan for MARVEL/cardioversion tomorrow. N.p.o. past midnight Thank you for involving us with care of this patient. We will continue to follow. Please call with questions. Consult Attestations Medical Necessity Statement: Care expected to cross 2 midnights. Coding Level of Care Code Acute Code for [facility] Diagnoses Atrial fibrillation with RVR I48.91 Chronic interstitial lung disease J84.9 Hypertension I10 Hypertension type: essential hypertension MARLI (obstructive sleep apnea) G47.33
[2022-12-29] MEDS: amiodarone 200 mg Tablet 400 MG PO (18:08)
[2022-12-29 19:59] LABS: Troponin 5 6HR 13.69 ng/L (0-15)
[2022-12-29 20:06] LABS: Troponin 5 6HR Delta 2.69 ng/L (0-12)
[2022-12-29] MEDS: budesonide 0.5 mg/2 mL Neb INHALATION (20:10)
[2022-12-29] MEDS: gabapentin 300 mg Capsule PO (20:48)
[2022-12-30] VITALS (24 sets, daily range): BP systolic 90–137; BP diastolic 70–102; PULSE 73–98; RESP 2–20; TEMP 36.1–37.2; O2SAT 94–99
[2022-12-30] MEDS: oxyCODONE 5 mg IR Tab/Cap 10 MG PO ×4 (03:57→20:51)
[2022-12-30 04:46] LABS: Basophils % 0.2 %; Eosinophils # 0.2 10^3/uL (0.0-0.8); Hemoglobin 11.7 g/dL (11.7-16.6); Lymphocytes # 1.9 10^3/uL (0.8-4.8); Lymphocytes % 20.4 %; Mean Corpuscular HGB Conc 31.6 g/dL (30.0-36.0); Mean Corpuscular Hemoglobin 26.6 pg (28.0-34.0); Mean Corpuscular Volume 84.1 fl (80-94); Mean Platelet Volume 9.2 fL (7.4-10.4); Monocytes # 0.8 10^3/uL (0.2-0.9); Monocytes % 8.7 %; Neutrophils # 6.52 10^3/uL (1.8-7.7); Neutrophils % 68.4 %; Nucleated Red Blood Cells % 0 %; Platelet Count 249 10^3/cmm (130-400); Red Cell Distribution Width 14.6 % (12.1-15.1); White Blood Count 9.5 10^3/uL (4.0-10.0)
[2022-12-30 05:07] LABS: Alanine Aminotransferase 9 U/L (0-41); Albumin Level 3.3 g/dL (3.5-5.2); Alkaline Phosphatase 128 U/L (40-130); Aspartate Amino Transferase 17 U/L (0-40); Blood Urea Nitrogen 14 mg/dL (6-20); Calcium 8.7 mg/dL (8.5-10.5); Carbon Dioxide 25 mmol/L (22-29); Chloride 103 mmol/L (98-107); Globulin 2.8 g/dL (1.3-4.6); Glomerular Filtration Rate 98.9 mL/min (90-130); Glucose 93 mg/dL (65-115); Magnesium 1.9 mg/dL (1.7-2.3); Osmolality Calculated 280 mOsm/kg (285-295); Sodium 135 mmol/L (136-145); Total Bilirubin 0.3 mg/dL (0.15-1.2); Total Protein 6.1 g/dL (6.6-8.7)
[2022-12-30 05:17] LABS: Anion Gap 11.5 (5-19); Potassium 4.5 mmol/L (3.5-5.1)
[2022-12-30] MEDS: budesonide 0.5 mg/2 mL Neb INHALATION ×2 (07:58→20:18)
[2022-12-30] MEDS: albuterol 2.5 mg/3 mL Neb INHALATION ×4 (07:58→20:18)
--- NOTE | 2022-12-30 08:15 | PC.NURSE ---
pt stated he last took his Xarelto yesterday morning.
--- NOTE | 2022-12-30 08:30 | USCV_ITS ---
Sammy Dykes (Larry) Age: 57 Gender: M : 1965 Exam Date: 12/30/2022 09:10 Ordering Phys: Wilfredo Tavera M.D ([email or web address]) Technologist: GILBERT [place] [facility] [place]: A FIB BP: 137 / 99 HR: Rhythm: Sinus Technical Quality: MEASUREMENTS (Male / Female) Normal Values Medications Complications None Proc. Components After anesthesia team sedated the patient, we advanced the MARVEL probe. FINDINGS Left Ventricle Left ventricle is normal in size and function Right Ventricle Normal in size and function Right Atrium Normal in size Left Atrium Dilated LA Appendage No thrombus seen IA Septum Mitral Valve Structurally normal mitral valve. Mild to moderate mitral regurgitation Aortic Valve Structurally normal aortic valve Tricuspid Valve Structurally normal tricuspid valve. Pulmonic Valve Not well visualized Pericardium Normal Aorta Mild plaque CONCLUSIONS Left ventricle is normal in size and function. Left atrial dilation No left atrial appendage thrombus seen. Mild to moderate mitral regurgitation Mild aortic plaque is seen. Wilfredo Tavera MD (Electronically Signed) Final Date: 04 January 2023 17:25 S
--- NOTE | 2022-12-30 08:30 | P.ANESASSM_ITS ---
Pre-Anesthetic Assessment Height/Weight: Height 1.85 m Weight 89.811 kg Temp Pulse Resp BP Pulse Ox O2 Del Method 98.3 F 81 16 137/102 96 12/30/22 07:54 12/30/22 08:00 12/30/22 08:00 12/30/22 07:54 12/30/22 08:00 12/30/22 08:00 Preop Diagnosis: Atrial fibrillation Operation Date: 12/30/22 09:00 Proposed Procedures p MARVEL(Not Applicable) - Wilfredo Tavera M.D Familial anesthetic complications: none Was Beta Tracy taken within 24 hours: Yes Was Clonidine taken within 24 hours: N/A Last Intake: 00:00 Social No alcohol and No tobacco Exam alert and oriented x 3 Airway Submandibular: within normal limits Cervical ROM: within normal limits Mallampati: Class II Dentition: full History/ROS No significant history except as noted Pulmonary Sleep Apnea (cpap) long COVID symptoms, symptom free >1yr CV/HEM Atrial Fibrillation and Hypertension None reported Hepatic None reported GI None reported Metabolic None reported Musc/skel None reported Neuropsych None reported Anesthetic Plan ASA status: 2 Anesthesia: Anesthesia Evaluation and MAC Risk of > 500 ml blood loss (7ml/kg in children): No Medications/Allergies Home Medications Medication Instructions Recorded Confirmed Last Taken Type oxycodone 10 mg tablet 10 mg PO Q4H PRN Pain 02/29/20 12/29/22 Unknown History prochlorperazine maleate 10 mg 10 mg PO Q6H PRN Nausea 04/24/21 12/29/22 Unknown History tablet (Compazine) gabapentin 300 mg capsule 300 - 600 mg PO Q8H 07/02/21 12/29/22 12/29/22 History nebulizer machine, mask, tubing #1 ea 09/15/21 12/29/22 Unknown Rx ondansetron HCl 8 mg tablet 8 mg PO Q12H PRN Nausea 02/04/22 12/29/22 Unknown History duloxetine 30 mg capsule,delayed See Rx Instructions .Route 09/10/22 12/29/22 12/29/22 Rx release .COMPLEX #90 caps famotidine 20 mg tablet See Rx Instructions .Route 09/10/22 12/29/22 12/29/22 Rx .COMPLEX #90 tabs hydroxyzine HCl 25 mg tablet See Rx Instructions .Route 09/10/22 12/29/22 Unknown Rx .COMPLEX #270 tabs loratadine 10 mg tablet (Allergy 10 mg PO DAILY PRN allergy 09/10/22 12/29/22 Unknown Rx Relief (loratadine)) symptoms #90 tabs meloxicam 15 mg tablet See Rx Instructions .Route 09/10/22 12/29/22 12/29/22 Rx .COMPLEX #90 tabs methocarbamol 750 mg tablet 750 mg PO QID 09/10/22 12/29/22 12/29/22 History modafinil 200 mg tablet 200 mg PO .COMPLEX #45 tabs 09/10/22 12/29/22 12/29/22 Rx ysafpedd-xrbdqkggi-blspbjgd 3.5 1 drp ophthalmic (eye) Q8H 10 days 09/10/22 12/29/22 Unknown Rx mg/mL-10,000 unit/mL-0.1% eye #5 mL drops (Maxitrol) rivaroxaban 20 mg tablet (Xarelto) See Rx Instructions .Route 09/10/22 12/29/22 12/29/22 Rx .COMPLEX #90 tabs tamsulosin 0.4 mg capsule See Rx Instructions .Route 09/10/22 12/29/22 12/29/22 Rx .COMPLEX #90 caps immune glob G 40 gram/400 400 ml IV Q28D #400 mL 09/28/22 12/29/22 Unknown Rx mL(10%)-gly-IgA ave 46 mcg/mL injection soln (Gamunex-C) albuterol sulfate 2.5 mg/3 mL 2.5 mg (3 mL) inhalation QID PRN 10/21/22 12/29/22 Unknown Rx (0.083 %) solution for nebulization shortness of breath or wheezing #180 mL budesonide-formoterol HFA 160 2 puff inhalation BID #10.2 grams 10/21/22 12/29/22 12/29/22 Rx mcg-4.5 mcg/actuation aerosol inhaler (Symbicort) fluticasone propionate 50 2 spray intranasal DAILY #16 grams 10/21/22 12/29/22 12/29/22 Rx mcg/actuation nasal spray,suspension (Flonase Allergy Relief) metoprolol tartrate 50 mg tablet 50 mg PO BID #180 tabs 11/24/22 12/29/22 12/29/22 Rx albuterol sulfate 90 mcg/actuation See Rx Instructions .Route 12/14/22 12/29/22 Unknown Rx aerosol inhaler .COMPLEX #8.5 grams Allergies Allergy/AdvReac Type Severity Reaction Status Date / Time Penicillins AdvReac nausea Verified 12/29/22 12:43 Current Medications Generic Name Dose Route Start Last Admin Trade Name Freq PRN Reason Stop Dose Admin Albuterol Sulfate 2.5 mg 12/29/22 16:00 12/30/22 07:58 Albuterol 2.5 Mg/3 Ml Neb INHALATION 2.5 mg QID.RESPIRATORY FELICIA Administration Amiodarone HCl 400 mg 12/29/22 18:00 12/29/22 18:08 Amiodarone 200 Mg Tablet PO 400 mg BID FELICIA Administration Budesonide 0.5 mg 12/29/22 20:00 12/30/22 07:58 Budesonide 0.5 Mg/2 Ml Neb INHALATION 0.5 mg BID.RESPIRATORY FELICIA Administration Duloxetine HCl 30 mg 12/29/22 16:30 12/29/22 16:11 Duloxetine 30 Mg Capsule PO 30 mg DAILY FELICIA Administration Famotidine 20 mg 12/29/22 16:30 12/29/22 16:11 Famotidine 20 Mg Tablet PO 20 mg DAILY FELICIA Administration Gabapentin 300 mg 12/29/22 21:00 12/29/22 20:48 Gabapentin 300 Mg Capsule PO 300 mg TID FELICIA Administration Diltiazem HCl 100 mg/ Sodium 100 mls @ 0 mls/hr 12/29/22 13:30 12/29/22 23:52 Chloride IV 2.5 mg/hr .Q0M FELICIA 2.5 mls/hr Titration Protocol Per Protocol Sodium Chloride 1,000 mls @ 100 mls/hr 12/29/22 15:41 12/29/22 23:59 Sodium Chloride 0.9% IV 100 mls/hr .Q10H FELICIA Administration Metoprolol Tartrate 50 mg 12/29/22 18:00 12/29/22 17:30 Metoprolol Tartrate 50 Mg Tablet PO 50 mg BID FELICIA Administration Oxycodone HCl 10 mg 12/29/22 20:46 12/30/22 03:57 Oxycodone 5 Mg Ir Tab/Cap PO 10 mg Q4H PRN Administration SEVERE PAIN Tamsulosin HCl 0.4 mg 12/29/22 16:30 12/29/22 16:11 Tamsulosin 0.4 Mg Capsule PO 0.4 mg DAILY FELICIA Administration PFSH Anesthesia Medical History Atrial fibrillation BPH (benign prostatic hyperplasia) Chronic anxiety Chronic pain Daytime hypersomnia Hypertension Hypogammaglobulinemia Mantle cell lymphoma MARLI (obstructive sleep apnea) Surgical History History of appendectomy History of lymph node biopsy (04/24/20) FNA biopsy of left axillary lymph node S/P thyroid biopsy (12/24/20) FNA biopsy of left thyroid lobe nodule Family History Sister Cancer Mother Hypertension CAD (coronary artery disease) Father Alzheimer disease Denies family history of Diabetes Clotting disorder Dementia Hyperlipidemia Psychiatric illness Chronic kidney disease (CKD) Suicide Anesthesia complication Bleeding disorder Lung disease Stroke Social History Smoking and tobacco status: never smoked Quit status (tobacco): has quit using tobacco Former quit date comment: chewed 0.5- 1 ppd Second hand smoke exposure: No Alcohol intake: former Year of sobriety/quit date alcohol: 2019 Former alcohol use details: drank mostly beer Lives independently: Yes Marital status: service: No Current occupational status: employed Current occupation: [employer] Current gender identity: Male Special fredy needs: No Agree to transfusion: Yes Data Anesthesia 12/30/22 04:22 12/30/22 04:22 Short CBC 12/29/22 12/30/22 Range/Units 13:37 04:22 WBC 7.1 9.5 (4.0-10.0) 10^3/uL Hgb 12.8 11.7 (11.7-16.6) g/dL Hct 40.4 L 37.0 L (42.0-52.0) % MCV 84.7 84.1 (80-94) fl Plt Count 289 249 (130-400) 10^3/cmm Neut % (Auto) 52.9 68.4 % Neut # (Auto) 3.74 6.52 (1.8-7.7) 10^3/uL BMP 12/29/22 12/30/22 13:37 04:22 Sodium 140 135 L Potassium 3.9 4.5 Chloride 103 103 Carbon Dioxide 28 25 BUN 17 14 Creatinine 0.8 0.8 Glucose 81 93 Calcium 8.9 8.7 Cardiac Enzymes 12/29/22 12/29/22 12/29/22 Range/Units 13:37 15:05 19:30 Troponin T Baseline 11 (0-15) ng/L Troponin T 120 Minute 11.72 (0-15) ng/L Delta Troponin T 0.72 (0-10) ABS# Troponin T Hi Sens 6Hr 13.69 (0-15) ng/L Troponin T Hi Sens 6Hr Delta 2.69 (0-12) ng/L Liver Function 12/29/22 12/30/22 Range/Units 13:37 04:22 Total Bilirubin 0.2 0.3 (0.15-1.2) mg/dL AST 14 17 (0-40) U/L ALT 9 9 (0-41) U/L Alkaline Phosphatase 139 H 128 (40-130) U/L Albumin 3.8 3.3 L (3.5-5.2) g/dL Urine 12/29/22 Range/Units 13:47 Urine Color Yellow (Yellow) Urine Appearance Clear (CLEAR) Urine pH 5 (5-7) Ur Specific [place] 1.020 (1.005-1.030) Urine Protein Neg (Negative) Urine Glucose (UA) Norm (Normal) Urine Ketones Negative (Negative) Urine Nitrate Negative (Negative) Urine Bilirubin 1+ H (Negative) Ur Leukocyte Esterase Negative (Negative) Cardiac Studies: Echocardiogram Ultrasound 05/16/20 Cardiac Event Monitor 11/24/22
--- NOTE | 2022-12-30 08:33 | W.PM.OPSUD ---
Surgery/Procedure H&P Update DATE OF PROCEDURE: December 30, 2022 DATE H&P PERFORMED: 12/29/22 H&P UPDATE INFORMATION: I have reviewed H&P completed within last 30 days, I have examined patient prior to procedure and No changes to prior documentation PREOP DIAGNOSIS: Atrial fibrillation PRIMARY INDICATION FOR PROCEDURE: Atrial fibrillation PLANNED PROCEDURE: MARVEL/ Cardioversion Anesthesia team performing sedation
[2022-12-30] MEDS: sodium chloride 0.9% (100 ml) 100 ML 30 ML (09:10)
--- NOTE | 2022-12-30 09:23 | PC.NURSE ---
0ne shock delivered at 0919 at 200J
--- NOTE | 2022-12-30 09:32 | ECG_ITS ---
[facility] Test Date: 2022-12-30 Pat Name: Sammy Dykes (Jed) Department: Room: 107 Gender: Male [employer]ter: : 1965 Requested By: Wilfredo Tavera Order Number: [id number] Reading MD: Wilfredo Tavera M.D. Measurements Intervals [place] Rate: 79 P: 0 NE: 0 QRS: 32 QRSD: 88 T: -17 QT: 390 QTc: 447 Interpretive Statements ATRIAL FIBRILLATION NONSPECIFIC T-WAVE ABNORMALITY Compared to ECG 12/29/2022 16:49:32 No significant changes Electronically Signed On 12-30-2022 18:42:52 CDT by Wilfredo Tavera M.D. [email or web address]
--- NOTE | 2022-12-30 09:44 | PC.NURSE ---
Post op EKG performed. Dr. Tavera notified, RN instructed to return patient to CSU
--- NOTE | 2022-12-30 09:45 | PC.NURSE ---
to gi lab for MARVEL w/cardioversion.
--- NOTE | 2022-12-30 10:24 | P.PCN_ITS ---
Procedure Note: Date of procedure: 12/30/22 Pre-procedure diagnosis: Atrial fibrillation Post-procedure diagnosis: other (Normal sinus rhythm) Procedure: MARVEL/ Cardioversion: After anesthesia team sedated patient, we advanced the MARVEL probe and performed MARVEL. No VAN thrombus was identified. We then proceeded with cardioversion with 200J and was successfully cardioverted with shock x1. Performing Provider: Wilfredo Tavera Condition: stable Disposition: floor Coding Level of Care Code Acute Code for [facility] Fwvioleta
--- NOTE | 2022-12-30 10:50 | P.PN_ITS ---
Subjective Subjective: Patient underwent successful cardioversion however did not stay in it and converted back to atrial fibrillation Vitals/I&O/Wt Last Vital Signs Temp 97.0 F L 12/30/22 09:25 Pulse 80 12/30/22 09:40 Resp 18 12/30/22 09:40 BP 111/76 12/30/22 09:40 Pulse Ox 95 12/30/22 09:40 O2 Del Method 12/30/22 09:40 O2 Flow Rate 2 12/30/22 09:40 12/29/22 12/30/22 12/30/22 22:59 06:59 14:59 Intake Total 487.25 / 487.25 899.167 / 1386.417 150 / 150 Balance 487.25 / 487.25 899.167 / 1386.417 150 / 150 Weight last 48 hrs Weight 198 lb Physical Exam Narrative: GENERAL: Patient is alert, awake and oriented x3. [] NECK: No jugular vein distension. [] HEENT: No cyanosis. No icterus. No pallor. [] HEART:Irregularly irregular, tachycardia LUNGS: Clear to auscultate bilaterally. [] CENTRAL NERVOUS SYSTEM: Grossly nonfocal. [] EXTREMITIES: Lower extremities with 1+ edema bilaterally. Pulses palpable in the lower extremities, both dorsalis pedis and posterior tibial. [] Data 12/30/22 04:22 12/30/22 04:22 A&P Assessment and plan (1) Atrial fibrillation with RVR: (2) Chronic interstitial lung disease: (3) Hypertension: Qualifiers: Hypertension type: essential hypertension Qualified Code(s): I10 - Essential (primary) hypertension (4) MARLI (obstructive sleep apnea): Plan Patient failed MARVEL cardioversion. He only stayed in normal sinus rhythm for few minutes before converting back to atrial fibrillation. We will rate control him. We will uptitrate metoprolol to 75 mg twice daily. C ontinue amiodarone to 400 mg twice daily. We will wean off Cardizem drip. Ordering echocardiogram Continue Xarelto Thank you for involving us with care of this patient. We will continue to follow. Please call with questions. Attestations Medical Necessity Statement*: Care expected to cross 2 midnights. Coding Level of Care Code Acute Code for [facility] Diagnoses Atrial fibrillation with RVR I48.91 Chronic interstitial lung disease J84.9 Hypertension I10 Hypertension type: essential hypertension MARLI (obstructive sleep apnea) G47.33
--- NOTE | 2022-12-30 10:53 | USCV_ITS ---
Sammy Dykes (Larry) Age: 57 Gender: M : 1965 Exam Date: 12/30/2022 13:56 Ordering Phys: Wilfredo Tavera M.D ([email or web address]) Technologist: Akhil Brown [place] [facility] [place] Indication: afib BP: 129 / 87 HR: 80 Rhythm: Sinus Technical Quality: Adequate MEASUREMENTS (Male / Female) Normal Values 2D ECHO LV Diastolic Diameter PLAX 4.4 cm 4.2 - 5.9 / 3.9 - 5.3 cm LV Systolic Diameter PLAX 2.3 cm IVS Diastolic Thickness 1.4 cm 0.6 - 1.0 / 0.6 - 0.9 cm IVS Systolic Thickness 1.9 cm LVPW Diastolic Thickness 1.3 cm 0.6 - 1.0 / 0.6 - 0.9 cm LVPW Systolic Thickness 1.8 cm LVOT Diameter 2.0 cm LV Ejection Fraction 2D Teich 79.8 % LV Ejection Fraction MOD 2C 63.6 % LV Ejection Fraction 2C AL 64.0 % LA Diameter 4.6 cm Aorta at Sinotubular Diameter 2.9 cm M-MODE Aortic Annulus Diameter 3.8 cm LA Ao Ratio MM 1.2 MV E Point Septal Separation 0.8 cm DOPPLER AV Peak Velocity 121.0 cm/s LVOT Peak Velocity 79.0 cm/s AV Area Cont Eq vti 2.4 cm squared AV Area Cont Eq pk 2.1 cm squared MV E' Velocity 10.0 cm/s TR Peak Velocity 285.3 cm/s TR Peak Gradient 32.6 mmHg TV Peak E Velocity 67.0 cm/s Right Atrial Pressure 3.0 mmHg Pulmonary Artery Systolic Pressu 35.6 mmHg FINDINGS Left Ventricle Left ventricle is normal in size. LV systolic function is normal with EF of 55 to 60%. No regional wall motion abnormalities are seen. Right Ventricle Normal in size Right Atrium Dilated Left Atrium Left atrium is severely dilated. Mitral Valve Structurally normal mitral valve. Moderate mitral regurgitation. Aortic Valve Structurally normal aortic valve. No significant stenosis or regurgitation. Tricuspid Valve Mild tricuspid regurgitation. RVSP is 35 to 40 mmHg. This is consistent with mild pulmonary hypertension. Pulmonic Valve Mild pulmonic regurgitation. Pericardium Normal Aorta Normal in size IVC Not well visualized CONCLUSIONS LV systolic function is normal with EF 55 to 60%. Right atrial dilation Left atrium is severely dilated. Moderate mitral regurgitation Mild tricuspid regurgitation Mild pulmonary hypertension Mild pulmonic regurgitation Compared to prior echocardiogram from 2019, no significant changes are seen. Wilfredo Tavera MD (Electronically Signed) Final Date: 30 December 2022 18:32 S
[2022-12-30] MEDS: amiodarone 200 mg Tablet 400 MG PO ×2 (10:54→18:17)
[2022-12-30] MEDS: gabapentin 300 mg Capsule PO ×3 (10:55→20:49)
[2022-12-30] MEDS: metoprolol tartrate 50 mg Tablet PO (10:55)
[2022-12-30] MEDS: duloxetine 30 mg Capsule PO (10:55)
[2022-12-30] MEDS: metoprolol tartrate 25 mg Tablet PO (10:55)
[2022-12-30] MEDS: rivaroxaban 10 mg Tablet 20 MG PO (10:55)
[2022-12-30] MEDS: famotidine 20 mg Tablet PO (10:56)
[2022-12-30] MEDS: tamsulosin 0.4 mg Capsule PO (11:11)
--- NOTE | 2022-12-30 11:17 | PC.NURSE ---
1000 Am Hand-off report received from GI Lab Robert RN Pt undergo MARVEL w/ Cardioversion. Nurse stated pt had 200 Joules x1 and went back to NSR. After few minutes, EKG was taken post cardioversion and pt is back to Afib with HR in 80s to 90s. Dr Tavera is aware and was notified. 1015-Pt came back from GI lab and in room. Pt tele shows afib,controlled HR, BP-129/87, 97% on room air. orders received from dr Tavera, pls see Emar. Verbal orders received to increase Metoprolol to 75 mg and stopped cardizem drip 1 hr post metoprolol admin.
--- NOTE | 2022-12-30 11:32 | P.PN_ITS ---
Subjective Subjective: Patient underwent MARVEL Cardioversion today,stayed in SR briefly but thereafter reverted back to atrial fibrillation. Medications: Medication Review Details: Generic Name Dose Route Start Last Admin Trade Name Freq PRN Reason Stop Dose Admin Albuterol Sulfate 2.5 mg 12/29/22 16:00 12/30/22 07:58 Albuterol 2.5 Mg /3 Ml Neb INHALATION 2.5 mg QID.RESPIRATORY S CH Administration Amiodarone HCl 400 mg 12/29/22 18:00 12/30/22 10:54 Amiodarone 200 M g Tablet PO 400 mg BID FELICIA Administration Budesonide 0.5 mg 12/29/22 20:00 12/30/22 07:58 Budesonide 0.5 M g/2 Ml Neb INHALATION 0.5 mg BID.RESPIRATORY S CH Administration Duloxetine HCl 30 mg 12/29/22 16:30 12/30/22 10:55 Duloxetine 30 Mg Capsule PO 30 mg DAILY FELICIA Administration Famotidine 20 mg 12/29/22 16:30 12/30/22 10:56 Famotidine 20 Mg Tablet PO 20 mg DAILY FELICIA Administration Gabapentin 300 mg 12/29/22 21:00 12/30/22 10:55 Gabapentin 300 M g Capsule PO 300 mg TID FELICIA Administration Sodium Chloride 1,000 mls @ 30 ml s/hr 12/30/22 09:00 12/30/22 11:12 Sodium Chloride 0.9% IV 12/31/22 08:59 Not Given .Q24H FELICIA Sodium Chloride 1,000 mls @ 30 ml s/hr 12/30/22 09:45 12/30/22 11:13 Sodium Chloride 0.9% IV 12/31/22 09:44 Not Given .Q24H FELICIA Metoprolol Tartrat e 50 mg 12/29/22 18:00 12/30/22 10:55 Metoprolol Tartr ate 50 Mg Tablet PO 50 mg BID FELICIA Administration Oxycodone HCl 10 mg 12/29/22 20:46 12/30/22 10:56 Oxycodone 5 Mg I r Tab/Cap PO 10 mg Q4H PRN Administration SEVERE PAIN Rivaroxaban 20 mg 12/30/22 09:00 12/30/22 10:55 Rivaroxaban 10 M g Tablet PO 20 mg DAILY FELICIA Administration Tamsulosin HCl 0.4 mg 12/29/22 16:30 12/30/22 11:11 Tamsulosin 0.4 M g Capsule PO 0.4 mg DAILY FELICIA Administration Vitals/I&O/Wt Last Vital Signs Temp 97.0 F L 12/30/22 09:25 Pulse 87 12/30/22 11:20 Resp 12 12/30/22 11:20 BP 129/87 12/30/22 11:20 Pulse Ox 97 12/30/22 11:20 O2 Del Method 12/30/22 11:20 O2 Flow Rate 2 12/30/22 09:40 12/29/22 12/30/22 12/30/22 22:59 06:59 14:59 Intake Total 487.25 / 487.25 899.167 / 1386.417 150 / 150 Balance 487.25 / 487.25 899.167 / 1386.417 150 / 150 Weight last 48 hrs Weight 89.811 kg Physical Exam Const: COMMON NORMALS: patient oriented x3 HENMT: COMMON NORMALS: normocephalic and atraumatic HEAD & SCALP: normocephalic and atraumatic Resp: COMMON NORMALS: clear to auscultation bilaterally EFFORT & INSPECTION: Yes symmetric chest movement AUSCULTATION: clear to auscultation bilaterally Cardio: COMMON NORMALS: No gallops present (Cardio), No murmurs present (Cardio), No rub (Cardio) and Peripheral pulses 2+ throughout PERIPHERAL PULSES: Peripheral pulses 2+ throughout OTHER: Irregularly irregular rhythm S1-S2 variable intensity GI: COMMON NORMALS: Normal to inspection, nondistended, normoactive bowel sounds present, Soft to palpation, non-tender, No hepatosplenomegaly present and no masses AUSCULTATION: Yes normoactive bowel sounds PALPATION: Yes Soft to palpation and Yes No hepatosplenomegaly present RECTAL EXAM: Yes deferred Extremity: COMMON NORMALS: no clubbing, cyanosis or edema and no pedal edema Neuro: COMMON NORMALS: patient oriented x3 Data 12/30/22 04:22 12/30/22 04:22 A&P Assessment and plan (1) Atrial fibrillation with RVR: (2) Chronic interstitial lung disease: (3) Hypertension: Qualifiers: Hypertension type: essential hypertension Qualified Code(s): I10 - Essential (primary) hypertension (4) MARLI (obstructive sleep apnea): (5) Daytime hypersomnia: Plan 57 year old male with pmh of a.fib,htn sleep apnea, was seen by his primary product promoter retail pet today as patient where he was found to be in a.fib with rvr,and was sent to ER for the management of same.In Er he was started on cardizem drip.lately patient has been complaining of increasing SOB as well as fatigue. Assessment : A.Fib with RVR : Continue cardizem drip has been restarted back on home dose of po metoprolol, cardiology as has started the patient on po amiodarone. continue xaralto for AC. s/p failed MARVEL Cardioversion 2D Echo : Continue Telemetry monitoring Cardiology on board code status: Full code DVT PPX: Not needed on full dose Ac with xaralto, will suffice for dvt ppx. Attestations Medical Necessity Statement*: Needs to be in hospital for the management of A.Fib Coding Level of Care Code 79559 Diagnoses Atrial fibrillation with RVR I48.91 Chronic interstitial lung disease J84.9 Hypertension I10 Hypertension type: essential hypertension MARLI (obstructive sleep apnea) G47.33 Daytime hypersomnia G47.19
--- NOTE | 2022-12-30 13:58 | ANE.PACU2 ---
Inpatient post-anesthesia follow up: Airway intact: Yes Vital signs: Temperature 97.0 F Pulse Rate 83 Respiratory Rate 16 Blood Pressure 129/87 Pulse Oximetry 98 Oxygen Delivery Me thod Room Air Oxygen Flow Rate 2 Fraction of Inspir ed Oxygen Hydration adequate: Yes Nausea and vomiting: No Pain level: 1 Mental status: Baseline
[2022-12-30] MEDS: metoprolol tartrate 50 mg Tablet 75 MG PO (18:17)
[2022-12-31] VITALS (8 sets, daily range): BP systolic 119–141; BP diastolic 83–97; PULSE 74–90; RESP 12–24; TEMP 36.6–36.9; O2SAT 92–99
[2022-12-31] MEDS: oxyCODONE 5 mg IR Tab/Cap 10 MG PO ×2 (03:31→08:35)
[2022-12-31 04:22] LABS: Basophils % 0.3 %; Eosinophils # 0.3 10^3/uL (0.0-0.8); Eosinophils % 3.3 %; Hematocrit 39.3 % (42.0-52.0); Hemoglobin 12.6 g/dL (11.7-16.6); Lymphocytes # 1.8 10^3/uL (0.8-4.8); Lymphocytes % 22.8 %; Mean Corpuscular HGB Conc 32.1 g/dL (30.0-36.0); Mean Corpuscular Hemoglobin 27.6 pg (28.0-34.0); Mean Platelet Volume 9.1 fL (7.4-10.4); Monocytes # 0.8 10^3/uL (0.2-0.9); Neutrophils # 5.07 10^3/uL (1.8-7.7); Neutrophils % 63.2 %; Nucleated Red Blood Cells % 0 %; Platelet Count 221 10^3/cmm (130-400); Red Blood Count 4.57 10^6/uL (4.1-5.3); Red Cell Distribution Width 14.7 % (12.1-15.1)
[2022-12-31 04:40] LABS: Alanine Aminotransferase 9 U/L (0-41); Albumin Level 3.2 g/dL (3.5-5.2); Alkaline Phosphatase 132 U/L (40-130); Aspartate Amino Transferase 15 U/L (0-40); Blood Urea Nitrogen 14 mg/dL (6-20); Calcium 8.7 mg/dL (8.5-10.5); Carbon Dioxide 23 mmol/L (22-29); Chloride 103 mmol/L (98-107); Globulin 3.1 g/dL (1.3-4.6); Glomerular Filtration Rate 98.9 mL/min (90-130); Glucose 91 mg/dL (65-115); Osmolality Calculated 280 mOsm/kg (285-295); Sodium 135 mmol/L (136-145); Total Bilirubin 0.3 mg/dL (0.15-1.2); Total Protein 6.3 g/dL (6.6-8.7)
[2022-12-31 04:56] LABS: Anion Gap 13.4 (5-19); Potassium 4.4 mmol/L (3.5-5.1)
[2022-12-31] MEDS: budesonide 0.5 mg/2 mL Neb INHALATION (07:58)
[2022-12-31] MEDS: albuterol 2.5 mg/3 mL Neb INHALATION (07:58)
[2022-12-31] MEDS: famotidine 20 mg Tablet PO (08:35)
[2022-12-31] MEDS: rivaroxaban 10 mg Tablet 20 MG PO (08:36)
[2022-12-31] MEDS: metoprolol tartrate 50 mg Tablet 75 MG PO (08:37)
[2022-12-31] MEDS: amiodarone 200 mg Tablet 400 MG PO (08:38)
[2022-12-31] MEDS: duloxetine 30 mg Capsule PO (08:38)
[2022-12-31] MEDS: gabapentin 300 mg Capsule PO (08:38)
[2022-12-31] MEDS: methocarbamol 750 mg Tablet PO (08:39)
--- NOTE | 2022-12-31 08:46 | P.PN_ITS ---
Subjective Subjective: Patient is doing well. Heart rate is well controlled. Vitals/I&O/Wt Last Vital Signs Temp 97.9 F 12/31/22 08:00 Pulse 84 12/31/22 08:00 Resp 24 H 12/31/22 08:35 BP 141/97 12/31/22 08:00 Pulse Ox 95 12/31/22 08:35 O2 Del Method 12/31/22 08:00 O2 Flow Rate 2 12/30/22 09:40 12/30/22 12/31/22 12/31/22 22:59 06:59 14:59 Intake Total 422 1989.583 400 / 2390.583 Balance 422 1989.583 400 / 2390.583 Weight last 48 hrs Weight 198 lb Physical Exam Narrative: GENERAL: Patient is alert, awake and oriented x3. [] NECK: No jugular vein distension. [] HEENT: No cyanosis. No icterus. No pallor. [] HEART:Irregularly irregular, tachycardia LUNGS: Clear to auscultate bilaterally. [] CENTRAL NERVOUS SYSTEM: Grossly nonfocal. [] EXTREMITIES: Lower extremities with 1+ edema bilaterally. Pulses palpable in the lower extremities, both dorsalis pedis and posterior tibial. [] Data 12/31/22 03:37 12/31/22 03:37 A&P Assessment and plan (1) Atrial fibrillation with RVR: (2) Chronic interstitial lung disease: (3) Hypertension: Qualifiers: Hypertension type: essential hypertension Qualified Code(s): I10 - Essential (primary) hypertension (4) MARLI (obstructive sleep apnea): Plan Patient failed MARVEL cardioversion. Only briefly remained in sinus rhythm before he converted back to atrial fibrillation. Heart rate is well controlled on metoprolol and amiodarone. Continue. Continue Xarelto. Thank you for involving us with care of this patient. Patient is stable to be discharged from cardiology follow up. Please call with questions. Attestations Medical Necessity Statement*: Care expected to cross 2 midnights. Coding Level of Care Code Acute Code for [facility] Fwd Diagnoses Atrial fibrillation with RVR I48.91 Chronic interstitial lung disease J84.9 Hypertension I10 Hypertension type: essential hypertension MARLI (obstructive sleep apnea) G47.33
--- NOTE | 2022-12-31 10:05 | P.DS_ITS ---
Discharge Providers Date of Admission: 12/29/22 15:20 Date of Discharge: December 31, 2022 Attending Provider at Admission: Oumar Francois MD Attending Provider at Discharge: Oumar Francois MD Primary Care Provider: RENÉE Cates Diagnoses at Discharge Discharge Diagnosis (1) Atrial fibrillation with RVR: Status: Acute (2) Chronic interstitial lung disease: Status: Acute (3) Hypertension: Status: Acute Qualifiers: Hypertension type: essential hypertension Qualified Code(s): I10 - Essential (primary) hypertension (4) MARLI (obstructive sleep apnea): Status: Acute (5) Daytime hypersomnia: Status: Acute Reason for Visit Reason for Visit: Sent from [facility], heart issues Hospital Course Hospital Course 57 year old male with pmh of a.fib,htn sleep apnea, was seen by his primary nurse anesthesia program director today as patient where he was found to be in a.fib with rvr,and was sent to ER for the management of same.In Er he was started on cardizem drip.lately patient has been complaining? of increasing SOB as well as fatigue.He was admitted for the management of symptomatic A.Fib with RVR, he underwent MARVEL Cardioversion,stayed in SR briefly but thereafter reverted back to atrial fibrillation.He was initially kept on cardizem drip as well as po metoprolol and later po amidarone was added,he was discharged on metoprolol.T 75 Mg po BID as well as po amidarone 400 mg po bid and thereafter 200 mg po daily,he was continued on xaralto for Ac.2D Echo done during the hospital stay showed ?LV systolic function is normal with EF 55 to 60%.Right atrial dilation,?Left atrium is severely dilated.,?Moderate mitral regurgitation,?Mild tricuspid regurgitation,?Mild pulmonary hypertension,?Mild pulmonic regurgitation. Patient responded well to above medical management and was discharged in stable condition to home,he will follow cardiology as well as pcp as outpatient. Physical Exam Const: COMMON NORMALS: patient oriented x3 HENMT: COMMON NORMALS: normocephalic and atraumatic HEAD & SCALP: normocephalic and atraumatic Resp: COMMON NORMALS: clear to auscultation bilaterally EFFORT & INSPECTION: Yes symmetric chest movement AUSCULTATION: clear to auscultation bilaterally Cardio: COMMON NORMALS: No gallops present (Cardio), No murmurs present (Cardio), No rub (Cardio) and Peripheral pulses 2+ throughout PERIPHERAL PULSES: Peripheral pulses 2+ throughout OTHER: Irregularly irregular rhythm S1-S2 variable intensity GI: COMMON NORMALS: Normal to inspection, nondistended, normoactive bowel sounds present, Soft to palpation, non-tender, No hepatosplenomegaly present and no masses AUSCULTATION: Yes normoactive bowel sounds PALPATION: Yes Soft to palpation and Yes No hepatosplenomegaly present RECTAL EXAM: Yes deferred Extremity: COMMON NORMALS: no clubbing, cyanosis or edema and no pedal edema Neuro: COMMON NORMALS: patient oriented x3 Discharge Data Studies Completed and Pending Completed Studies During Hospitalization Category Date Time Status XR chest 1V portable [id number] Stat Exams 12/29/22 14:09 Completed CV. echo complete* [id number] Routine Ultrasound 12/30/22 10:53 Completed Pending at discharge Category Date Time Status Complete Blood Count w/Auto AM LABS Lab 01/01/23 04:00 Ordered Comprehensive Metabolic Panel AM LABS Lab 01/01/23 04:00 Ordered CV. echo transesophageal [id number] Routine Ultrasound 12/30/22 08:30 Taken Radiology Impressions Chest X-Ray 12/29/22 14:09 IMPRESSION: 1. No acute cardiopulmonary finding. Laboratory Results WBC 8.0 10^3/uL (4.0-10.0) 12/31/22 03:37 RBC 4.57 10^6/uL (4.1-5.3) 12/31/22 03:37 Hgb 12.6 g/dL (11.7-16.6) 12/31/22 03:37 Hct 39.3 % (42.0-52.0) L 12/31/22 03:37 MCV 86.0 fl (80-94) 12/31/22 03:37 MCH 27.6 pg (28.0-34.0) L 12/31/22 03:37 MCHC 32.1 g/dL (30.0-36.0) 12/31/22 03:37 RDW 14.7 % (12.1-15.1) 12/31/22 03:37 Plt Count 221 10^3/cmm (130-400) 12/31/22 03:37 MPV 9.1 fL (7.4-10.4) 12/31/22 03:37 Neut % (Auto) 63.2 % 12/31/22 03:37 Lymph % (Auto) 22.8 % 12/31/22 03:37 [place] % (Auto) 10.0 % 12/31/22 03:37 Eos % (Auto) 3.3 % 12/31/22 03:37 Baso % (Auto) 0.3 % 12/31/22 03:37 Neut # (Auto) 5.07 10^3/uL (1.8-7.7) 12/31/22 03:37 Lymph # (Auto) 1.8 10^3/uL (0.8-4.8) 12/31/22 03:37 [place] # (Auto) 0.8 10^3/uL (0.2-0.9) 12/31/22 03:37 Eos # (Auto) 0.3 10^3/uL (0.0-0.8) 12/31/22 03:37 Baso # (Auto) 0.0 10^3/uL (0.0-0.1) 12/31/22 03:37 Nucleated RBC % (auto) 0 % 12/31/22 03:37 Nucleated RBCs # 0.0 /100WBC 12/31/22 03:37 Sodium 135 mmol/L (136-145) L 12/31/22 03:37 Potassium 4.4 mmol/L (3.5-5.1) 12/31/22 03:37 Chloride 103 mmol/L (98-107) 12/31/22 03:37 Carbon Dioxide 23 mmol/L (22-29) 12/31/22 03:37 Anion Gap 13.4 (5-19) 12/31/22 03:37 BUN 14 mg/dL (6-20) 12/31/22 03:37 Creatinine 0.8 mg/dL (0.7-1.2) 12/31/22 03:37 GFR Calculation 98.9 mL/min (90-130) 12/31/22 03:37 Glucose 91 mg/dL (65-115) 12/31/22 03:37 Calculated Osmolality 280 mOsm/kg (285-295) L 12/31/22 03:37 Calcium 8.7 mg/dL (8.5-10.5) 12/31/22 03:37 Magnesium 1.9 mg/dL (1.7-2.3) 12/30/22 04:22 Total Bilirubin 0.3 mg/dL (0.15-1.2) 12/31/22 03:37 AST 15 U/L (0-40) 12/31/22 03:37 ALT 9 U/L (0-41) 12/31/22 03:37 Alkaline Phosphatase 132 U/L (40-130) H 12/31/22 03:37 Troponin T Baseline 11 ng/L (0-15) 12/29/22 13:37 Troponin T 120 Minute 11.72 ng/L (0-15) 12/29/22 15:05 Delta Troponin T 0.72 ABS# (0-10) 12/29/22 15:05 Troponin T Hi Sens 6Hr 13.69 ng/L (0-15) 12/29/22 19:30 Troponin T Hi Sens 6Hr Delta 2.69 ng/L (0-12) 12/29/22 19:30 Total Protein 6.3 g/dL (6.6-8.7) L 12/31/22 03:37 Albumin 3.2 g/dL (3.5-5.2) L 12/31/22 03:37 Globulin 3.1 g/dL (1.3-4.6) 12/31/22 03:37 Urine Color Yellow (Yellow) 12/29/22 13:47 Urine Appearance Clear (CLEAR) 12/29/22 13:47 Urine pH 5 (5-7) 12/29/22 13:47 Ur Specific [place] 1.020 (1.005-1.030) 12/29/22 13:47 Urine Protein Neg (Negative) 12/29/22 13:47 Urine Glucose (UA) Norm (Normal) 12/29/22 13:47 Urine Ketones Negative (Negative) 12/29/22 13:47 Urine Blood Neg (Negative) 12/29/22 13:47 Urine Nitrate Negative (Negative) 12/29/22 13:47 Urine Bilirubin 1+ (Negative) H 12/29/22 13:47 Urine Urobilinogen Neg mg/dL (Negative) 12/29/22 13:47 Ur Leukocyte Esterase Negative (Negative) 12/29/22 13:47 Vitals Last Vital Signs Temp 97.9 F 12/31/22 08:00 Pulse 84 12/31/22 08:00 Resp 24 H 12/31/22 08:35 BP 141/97 12/31/22 08:00 Pulse Ox 95 12/31/22 08:35 O2 Del Method 12/31/22 08:00 O2 Flow Rate 2 12/30/22 09:40 Discharge Plan Discharge Patient Disposition: Home Condition: Stable Prescriptions: New Pacerone 200 mg Tablet 400 mg PO BID 30 Days Qty: 120 0RF Rx Instructions: 400 mg po BID for a week and then 200 mg po daily metoprolol tartrate 50 mg Tablet 75 mg PO BID 30 Days Qty: 90 2RF Continued prochlorperazine maleate [Compazine] 10 mg tablet 10 mg PO Q6H PRN (Reason: Nausea) (DME) nebulizer machine, mask, tubing See Rx Instructions .Route .MEDSUPPLY Qty: 1 0RF Rx Instructions: As directed oxycodone 10 mg tablet 10 mg PO Q4H PRN (Reason: Pain) gabapentin 300 mg capsule 300 - 600 mg PO Q8H ondansetron HCl 8 mg tablet 8 mg PO Q12H PRN (Reason: Nausea) methocarbamol 750 mg tablet 750 mg PO QID meloxicam 15 mg tablet See Rx Instructions .ROUTE .COMPLEX Qty: 90 1RF Dose Instruction: TAKE ONE TABLET BY MOUTH EVERY DAY. Rx Instructions: TAKE ONE TABLET BY MOUTH EVERY DAY. tamsulosin 0.4 mg capsule See Rx Instructions .ROUTE .COMPLEX Qty: 90 1RF Dose Instruction: TAKE ONE CAPSULE BY MOUTH EVERY DAY. Rx Instructions: TAKE ONE CAPSULE BY MOUTH EVERY DAY. Xarelto 20 mg tablet See Rx Instructions .ROUTE .COMPLEX Qty: 90 1RF Dose Instruction: TAKE ONE TABLET BY MOUTH EVERY DAY with evening meal. Rx Instructions: TAKE ONE TABLET BY MOUTH EVERY DAY with evening meal. neomycin-polymyxin B-dexameth [Maxitrol] 3.5mg/mL-10,000 unit/mL-0.1 % drops,suspension 1 drp ophthalmic (eye) Q8H 10 Days Qty: 5 0RF hydroxyzine HCl 25 mg tablet See Rx Instructions .ROUTE .COMPLEX Qty: 270 1RF Dose Instruction: TAKE ONE TABLET BY MOUTH THREE TIMES DAILY NEEDED FOR ANXIETY. Rx Instructions: TAKE ONE TABLET BY MOUTH THREE TIMES DAILY NEEDED FOR ANXIETY. loratadine [Allergy Relief (loratadine)] 10 mg tablet 10 mg PO DAILY PRN (Reason: allergy symptoms) Qty: 90 1RF duloxetine 30 mg capsule,delayed release(DR/EC) See Rx Instructions .ROUTE .COMPLEX Qty: 90 1RF Dose Instruction: TAKE ONE CAPSULE BY MOUTH EVERY DAY. Rx Instructions: TAKE ONE CAPSULE BY MOUTH EVERY DAY. famotidine 20 mg tablet See Rx Instructions .ROUTE .COMPLEX Qty: 90 1RF Dose Instruction: TAKE ONE TABLET BY MOUTH DAILY. NEEDS TO BE SEEN FOR FUTHER REFILLS. Rx Instructions: TAKE ONE TABLET BY MOUTH DAILY. modafinil 200 mg tablet 200 mg PO .COMPLEX Qty: 45 5RF Rx Instructions: 200 mg orally in am and 1/2 in afternoon.; albuterol sulfate 2.5 mg /3 mL (0.083 %) solution for nebulization 2.5 mg inhalation QID PRN (Reason: shortness of breath or wheezing) Qty: 180 2RF fluticasone propionate [Flonase Allergy Relief] 50 mcg/actuation spray,suspension 2 spray intranasal DAILY Qty: 16 2RF Rx Instructions: administer into each nostril budesonide-formoterol [Symbicort] 160-4.5 mcg/actuation HFA aerosol inhaler 2 puff inhalation BID Qty: 10.2 5RF albuterol sulfate 90 mcg/actuation HFA aerosol inhaler See Rx Instructions .ROUTE .COMPLEX Qty: 8.5 5RF Dose Instruction: INHALE TWO PUFFS BY MOUTH FOUR TIMES DAILY NEEDED SHORTNESS OF BREATH OR wheezing. Rx Instructions: INHALE TWO PUFFS BY MOUTH FOUR TIMES DAILY NEEDED SHORTNESS OF BREATH OR wheezing. Gamunex-C 40 gram/400 mL (10 %) Solution 400 ml IV Q28D Qty: 400 12RF Discontinued metoprolol tartrate 50 mg tablet 50 mg PO BID Qty: 180 3RF Discharge Orders: Discharge Order (Routine); Ordered 12/31/22 Ordered By: Oumar Francois Referrals: Wilfredo Tavera M.D [Physician] - 2 months (This appointment will be scheduled when you see Keyanna Calderon. ) Viv Llanos FNP [Primary Care Provider] - 01/04/23 2:00 pm Keyanna Calderon FNP [Nurse Practitioner] - 01/12/23 9:45 am Patient Instructions: Metoprolol (By mouth) (Lopressor, Toprol XL), Amiodarone (By mouth) (Cordarone, Pacerone), A-fib (Atrial Fibrillation) (DC), Cardioversion (DC), Transesophageal Echocardiogram (DC), Opioid Safety Discharge Attestations Time Spent in Discharge Care*: less than 30 min Quality Metrics Clinical Quality Measures [ No reported AMI, CVA or VTE this stay] Coding Level of Care Code Acute Code for [facility] Fwd Diagnoses Atrial fibrillation with RVR I48.91 Chronic interstitial lung disease J84.9 Hypertension I10 Hypertension type: essential hypertension MARLI (obstructive sleep apnea) G47.33 Daytime hypersomnia G47.19
[2022-12-31] MEDS: tamsulosin 0.4 mg Capsule PO (10:27)
== END 2022-12-31 12:30 | disposition home or self-care (01) | DRG 309 ==
LOC: ER 14:11 → CSU 15:20
PROVIDERS: Internal Medicine; Admitting Provider Internal Medicine; Emergency Provider Family Medicine; PCP Nurse Practitioner Family; Visit Provider Internal Medicine
PROC: 5A2204Z Restoration of Cardiac Rhythm, Single (ICD-10-PCS; CPT 93312; principal; 2022-12-30 09:00)
PROC: 5A2204Z Restoration of Cardiac Rhythm, Single (ICD-10-PCS; 2022-12-30 09:00)
DX: I48.20 Chronic atrial fibrillation, unspecified (principal); J84.9 Interstitial pulmonary disease, unspecified; G47.33 Obstructive sleep apnea (adult) (pediatric); I08.1 Rheumatic disorders of both mitral and tricuspid valves; I27.20 Pulmonary hypertension, unspecified; N40.0 Benign prostatic hyperplasia without lower urinary tract symptoms; F41.9 Anxiety disorder, unspecified; G89.29 Other chronic pain; G47.10 Hypersomnia, unspecified; I10 Essential (primary) hypertension; Z79.891 Long term (current) use of opiate analgesic; Z79.01 Long term (current) use of anticoagulants; Z79.51 Long term (current) use of inhaled steroids; Z85.72 Personal history of non-Hodgkin lymphomas
CPT/HCPCS: 36415; 71045; 80053; 81003; 83735; 84484; 85025; 92960; 93005; 93306; 93312; 93320; 93325; 94640; 96365; 96375; 96376; 99285; J2704; J3490; J7030; J7613; J7626

== ENCOUNTER 2023-01-19 09:55 | Oncology outpatient (recurring) (ONCR) | payer BC, SELFPAY ==
[2023-01-19] VITALS (9 sets, daily range): BP systolic 112–128; BP diastolic 68–79; PULSE 44–46; RESP 18; TEMP 36.3–36.6; O2SAT 95–96
[2023-01-19] MEDS: acetaminophen 325 mg Tablet 650 MG PO (11:17)
[2023-01-19] MEDS: sodium chloride 0.9% 250 ML 75 ML IV (11:18)
[2023-01-19] MEDS: diphenhydrAMINE 25 mg Capsule PO (11:18)
[2023-01-19 11:44] LABS: Basophils % 0.4 %; Eosinophils # 0.3 10^3/uL (0.0-0.8); Eosinophils % 4.5 %; Hematocrit 35.9 % (42.0-52.0); Hemoglobin 11.4 g/dL (11.7-16.6); Lymphocytes % 30.2 %; Mean Corpuscular HGB Conc 31.8 g/dL (30.0-36.0); Mean Corpuscular Hemoglobin 27.3 pg (28.0-34.0); Mean Corpuscular Volume 86.1 fl (80-94); Monocytes # 0.7 10^3/uL (0.2-0.9); Monocytes % 10.6 %; Neutrophils # 3.61 10^3/uL (1.8-7.7); Nucleated Red Blood Cells % 0 %; Platelet Count 249 10^3/cmm (130-400); Red Blood Count 4.17 10^6/uL (4.1-5.3); Red Cell Distribution Width 15.2 % (12.1-15.1); White Blood Count 6.7 10^3/uL (4.0-10.0)
[2023-01-19 11:54] LABS: Alanine Aminotransferase 12 U/L (0-41); Albumin Level 3.5 g/dL (3.5-5.2); Alkaline Phosphatase 114 U/L (40-130); Anion Gap 13.8 (5-19); Aspartate Amino Transferase 14 U/L (0-40); Blood Urea Nitrogen 18 mg/dL (8-23); Calcium 8.6 mg/dL (8.5-10.5); Carbon Dioxide 26 mmol/L (22-29); Chloride 101 mmol/L (98-107); Globulin 2.3 g/dL (1.3-4.6); Glomerular Filtration Rate 86.1 mL/min (90-130); Glucose 79 mg/dL (65-115); Osmolality Calculated 285 mOsm/kg (285-295); Potassium 3.8 mmol/L (3.5-5.1); Sodium 137 mmol/L (136-145); Total Bilirubin 0.2 mg/dL (0.15-1.2); Total Protein 5.8 g/dL (6.6-8.7)
== END 2023-01-30 23:59 | disposition home or self-care (01) ==
LOC: ONCMED 09:55
PROVIDERS: PCP Nurse Practitioner Family; Visit Provider Internal Medicine Medical Oncology
DX: D80.1 Nonfamilial hypogammaglobulinemia (principal); Z12.11 Encounter for screening for malignant neoplasm of colon; Z79.899 Other long term (current) drug therapy
CPT/HCPCS: 80053; 85025; 96365; 96366; J1561; J7050

== ENCOUNTER 2023-02-16 11:34 | Oncology outpatient (recurring) (ONCR) | payer BC, SELFPAY ==
[2023-02-16] MEDS: diphenhydrAMINE 25 mg Capsule PO (12:20)
[2023-02-16] MEDS: acetaminophen 325 mg Tablet 650 MG PO (12:20)
[2023-02-16] MEDS: sodium chloride 0.9% 500 ML 999 ML IV (12:58)
[2023-02-16 13:00] VITALS: BP 123/72; PULSE 45; TEMP 36.6; O2SAT 95
[2023-02-16 13:15] VITALS: BP 137/78; PULSE 46; TEMP 36.4; O2SAT 95
[2023-02-16 14:30] VITALS: BP 137/77; PULSE 45; TEMP 36.6; O2SAT 96
[2023-02-16 14:45] VITALS: BP 151/86; PULSE 41; TEMP 36.1; O2SAT 97
[2023-02-16 15:00] VITALS: BP 163/106; PULSE 45; TEMP 36.2; O2SAT 96
[2023-02-16 15:30] VITALS: BP 144/88; PULSE 45; O2SAT 97
== END 2023-03-02 23:59 | disposition home or self-care (01) ==
PROVIDERS: PCP Nurse Practitioner Family; Visit Provider Internal Medicine Medical Oncology
DX: D80.1 Nonfamilial hypogammaglobulinemia (principal)
CPT/HCPCS: 96365; 96366; 96413; 96415; J1568; J7040

== ENCOUNTER 2023-03-16 07:58 | Oncology outpatient (recurring) (ONCR) | payer BC, SELFPAY ==
[2023-03-12 10:45] VITALS: BP 96/59; PULSE 46; RESP 18; TEMP 36.2; O2SAT 92
[2023-03-16] VITALS (7 sets, daily range): BP systolic 103–116; BP diastolic 59–74; PULSE 44–55; RESP 18; TEMP 34.4–36.7; O2SAT 91–95
[2023-03-16 08:41] LABS: Basophils % 0.4 %; Eosinophils # 0.4 10^3/uL (0.0-0.8); Eosinophils % 5.2 %; Lymphocytes # 2.1 10^3/uL (0.8-4.8); Lymphocytes % 30.7 %; Mean Corpuscular HGB Conc 32.4 g/dL (30.0-36.0); Mean Corpuscular Hemoglobin 27.8 pg (28.0-34.0); Mean Corpuscular Volume 85.8 fl (80-94); Mean Platelet Volume 8.8 fL (7.4-10.4); Monocytes # 0.8 10^3/uL (0.2-0.9); Neutrophils # 3.54 10^3/uL (1.8-7.7); Neutrophils % 51.4 %; Nucleated Red Blood Cells % 0 %; Platelet Count 225 10^3/cmm (130-400); Red Blood Count 4.31 10^6/uL (4.1-5.3); Red Cell Distribution Width 13.7 % (12.1-15.1); White Blood Count 6.9 10^3/uL (4.0-10.0)
[2023-03-16 09:08] LABS: Alanine Aminotransferase 11 U/L (0-41); Albumin Level 3.7 g/dL (3.5-5.2); Alkaline Phosphatase 132 U/L (40-130); Anion Gap 13.8 (5-19); Aspartate Amino Transferase 15 U/L (0-40); Blood Urea Nitrogen 15 mg/dL (8-23); Calcium 8.8 mg/dL (8.5-10.5); Carbon Dioxide 27 mmol/L (22-29); Chloride 102 mmol/L (98-107); Globulin 2.6 g/dL (1.3-4.6); Glomerular Filtration Rate 98.6 mL/min (90-130); Glucose 79 mg/dL (65-115); Immunoglobulin IGA 114 mg/dL (70-400); Immunoglobulin IGG 763 mg/dL (700-1600); Immunoglobulin IGM 25 mg/dL (40-230); Lactate Dehydrogenase 243 U/L (135-225); Osmolality Calculated 288 mOsm/kg (285-295); Potassium 3.8 mmol/L (3.5-5.1); Sodium 139 mmol/L (136-145); Total Bilirubin 0.2 mg/dL (0.15-1.2); Total Protein 6.3 g/dL (6.6-8.7)
[2023-03-16] MEDS: diphenhydrAMINE 25 mg Capsule PO (09:57)
[2023-03-16] MEDS: acetaminophen 325 mg Tablet 650 MG PO (09:57)
[2023-03-16] MEDS: sodium chloride 0.9% 250 ML 75 ML IV (09:58)
== END 2023-04-01 23:59 | disposition home or self-care (01) ==
PROVIDERS: Internal Medicine Medical Oncology; PCP Nurse Practitioner Family; Visit Provider Internal Medicine Medical Oncology
DX: C83.10 Mantle cell lymphoma, unspecified site (principal)
CPT/HCPCS: 80053; 82784; 83615; 85025; 96365; 96366; J1561; J7050

== ENCOUNTER 2023-04-19 07:44 | Oncology outpatient (recurring) (ONCR) | payer BC, SELFPAY ==
[2023-04-19] VITALS (8 sets, daily range): BP systolic 115–144; BP diastolic 71–83; PULSE 45–69; RESP 16–18; TEMP 36.4–36.9; O2SAT 92–100
[2023-04-19 08:13] LABS: Basophils % 0.4 %; Eosinophils # 0.3 10^3/uL (0.0-0.8); Eosinophils % 3.7 %; Hematocrit 37.5 % (42.0-52.0); Hemoglobin 12.2 g/dL (11.7-16.6); Lymphocytes # 2.1 10^3/uL (0.8-4.8); Lymphocytes % 30.3 %; Mean Corpuscular HGB Conc 32.5 g/dL (30.0-36.0); Mean Corpuscular Hemoglobin 28.1 pg (28.0-34.0); Mean Corpuscular Volume 86.4 fl (80-94); Mean Platelet Volume 8.5 fL (7.4-10.4); Monocytes # 0.8 10^3/uL (0.2-0.9); Monocytes % 11.3 %; Neutrophils # 3.78 10^3/uL (1.8-7.7); Neutrophils % 53.9 %; Nucleated Red Blood Cells % 0 %; Platelet Count 220 10^3/cmm (130-400); Red Blood Count 4.34 10^6/uL (4.1-5.3); Red Cell Distribution Width 13.5 % (12.1-15.1)
[2023-04-19 08:31] LABS: Alanine Aminotransferase 14 U/L (0-41); Albumin Level 3.9 g/dL (3.5-5.2); Alkaline Phosphatase 137 U/L (40-130); Anion Gap 12.2 (5-19); Aspartate Amino Transferase 17 U/L (0-40); Blood Urea Nitrogen 21 mg/dL (8-23); Calcium 8.8 mg/dL (8.5-10.5); Carbon Dioxide 28 mmol/L (22-29); Chloride 103 mmol/L (98-107); Globulin 2.3 g/dL (1.3-4.6); Glomerular Filtration Rate 76.2 mL/min (90-130); Glucose 79 mg/dL (65-115); Osmolality Calculated 290 mOsm/kg (285-295); Potassium 4.2 mmol/L (3.5-5.1); Sodium 139 mmol/L (136-145); Total Bilirubin 0.2 mg/dL (0.15-1.2); Total Protein 6.2 g/dL (6.6-8.7)
[2023-04-19] MEDS: diphenhydrAMINE 25 mg Capsule PO (09:27)
[2023-04-19] MEDS: acetaminophen 325 mg Tablet 650 MG PO (09:27)
[2023-04-19] MEDS: sodium chloride 0.9% 250 ML 75 ML IV (09:27)
== END 2023-05-02 23:59 | disposition home or self-care (01) ==
PROVIDERS: Internal Medicine Medical Oncology; PCP Nurse Practitioner Family; Visit Provider Internal Medicine Medical Oncology
DX: D80.1 Nonfamilial hypogammaglobulinemia (principal)
CPT/HCPCS: 80053; 85025; 96361; 96365; 96366; J7050

== ENCOUNTER 2023-05-17 07:58 | Oncology outpatient (recurring) (ONCR) | payer BC, SELFPAY ==
[2023-05-17] VITALS (8 sets, daily range): BP systolic 105–146; BP diastolic 62–84; PULSE 44–58; RESP 16–18; TEMP 36–36.6; O2SAT 95–98; BMI 26.6
[2023-05-17 08:47] LABS: Basophils % 0.5 %; Eosinophils # 0.4 10^3/uL (0.0-0.8); Eosinophils % 5.2 %; Hemoglobin 12.1 g/dL (11.7-16.6); Lymphocytes # 2.2 10^3/uL (0.8-4.8); Lymphocytes % 29.8 %; Mean Corpuscular HGB Conc 32.7 g/dL (30.0-36.0); Mean Corpuscular Hemoglobin 28.5 pg (28.0-34.0); Mean Corpuscular Volume 87.3 fl (80-94); Mean Platelet Volume 8.7 fL (7.4-10.4); Monocytes # 0.8 10^3/uL (0.2-0.9); Monocytes % 10.6 %; Neutrophils # 3.97 10^3/uL (1.8-7.7); Neutrophils % 53.5 %; Nucleated Red Blood Cells % 0 %; Platelet Count 235 10^3/cmm (130-400); Red Blood Count 4.24 10^6/uL (4.1-5.3); Red Cell Distribution Width 13.5 % (12.1-15.1); White Blood Count 7.4 10^3/uL (4.0-10.0)
[2023-05-17 09:27] LABS: Alanine Aminotransferase 18 U/L (0-41); Albumin Level 3.8 g/dL (3.5-5.2); Alkaline Phosphatase 139 U/L (40-130); Anion Gap 11.3 (5-19); Aspartate Amino Transferase 21 U/L (0-40); Blood Urea Nitrogen 18 mg/dL (8-23); Calcium 8.6 mg/dL (8.5-10.5); Carbon Dioxide 28 mmol/L (22-29); Chloride 103 mmol/L (98-107); Globulin 2.6 g/dL (1.3-4.6); Glomerular Filtration Rate 76.2 mL/min (90-130); Glucose 91 mg/dL (65-115); Immunoglobulin IGA 120 mg/dL (70-400); Immunoglobulin IGG 814 mg/dL (700-1600); Immunoglobulin IGM 25 mg/dL (40-230); Lactate Dehydrogenase 238 U/L (135-225); Osmolality Calculated 287 mOsm/kg (285-295); Potassium 4.3 mmol/L (3.5-5.1); Sodium 138 mmol/L (136-145); Total Bilirubin 0.2 mg/dL (0.15-1.2); Total Protein 6.4 g/dL (6.6-8.7)
[2023-05-17] MEDS: acetaminophen 325 mg Tablet 650 MG PO (10:33)
[2023-05-17] MEDS: diphenhydrAMINE 25 mg Capsule PO (10:34)
[2023-05-17] MEDS: sodium chloride 0.9% 250 ML 50 ML IV (10:35)
== END 2023-06-02 23:59 | disposition home or self-care (01) ==
PROVIDERS: Internal Medicine Medical Oncology; PCP Nurse Practitioner Family; Visit Provider Internal Medicine Medical Oncology
DX: D80.1 Nonfamilial hypogammaglobulinemia (principal)
CPT/HCPCS: 80053; 82784; 83615; 85025; 96365; 96366; J1561; J7050

== ENCOUNTER 2023-06-15 10:13 | Oncology outpatient (recurring) (ONCR) | payer BC, SELFPAY ==
[2023-06-15] MEDS: immune globulin (Gamunex) 40 GM in empty flexible container 1 EACH IV (11:41)
[2023-06-15] MEDS: diphenhydrAMINE 25 mg Capsule PO (11:44)
[2023-06-15] MEDS: acetaminophen 325 mg Tablet 650 MG PO (11:44)
[2023-06-15 12:20] VITALS: BP 106/67; PULSE 48; RESP 20; TEMP 36.1; O2SAT 93
[2023-06-15 12:35] VITALS: BP 109/68; PULSE 46; RESP 16; TEMP 35.7; O2SAT 96
[2023-06-15 12:50] VITALS: BP 109/69; PULSE 55; RESP 18; TEMP 36.3; O2SAT 94
[2023-06-15 13:05] VITALS: BP 111/75; PULSE 45; RESP 18; TEMP 36.2; O2SAT 96
[2023-06-15 14:00] VITALS: BP 116/79; PULSE 45; RESP 18; TEMP 35.7; O2SAT 97
== END 2023-07-02 23:59 | disposition home or self-care (01) ==
PROVIDERS: PCP Nurse Practitioner Family; Visit Provider Internal Medicine Medical Oncology
DX: D80.1 Nonfamilial hypogammaglobulinemia (principal); Z53.9 Procedure and treatment not carried out, unspecified reason
CPT/HCPCS: 96365; 96366; J1561

== ENCOUNTER 2023-07-12 10:45 | Oncology outpatient (recurring) (ONCR) | payer BC, SELFPAY ==
[2023-07-12] VITALS (7 sets, daily range): BP systolic 121–138; BP diastolic 71–80; PULSE 42–52; RESP 16; TEMP 36.3–36.7; O2SAT 95–99
[2023-07-12] MEDS: sodium chloride 0.9% 250 ML 75 ML IV (11:58)
[2023-07-12] MEDS: diphenhydrAMINE 25 mg Capsule PO (11:58)
[2023-07-12] MEDS: acetaminophen 325 mg Tablet 650 MG PO (11:59)
[2023-07-12] MEDS: immune globulin (Privigen ONC) 40 GM in empty flexible container 1 EACH IV (12:25)
== END 2023-08-02 23:59 | disposition home or self-care (01) ==
PROVIDERS: PCP Nurse Practitioner Family; Visit Provider Internal Medicine Medical Oncology
DX: D80.1 Nonfamilial hypogammaglobulinemia (principal)
CPT/HCPCS: 96365; 96366; J1459; J7050

== ENCOUNTER 2023-08-09 07:38 | Oncology outpatient (recurring) (ONCR) | payer BC, SELFPAY ==
[2023-08-09] VITALS (11 sets, daily range): BP systolic 109–144; BP diastolic 68–83; PULSE 44–94; RESP 16; TEMP 36.3–36.8; O2SAT 93–97
[2023-08-09 08:01] LABS: Basophils # 0.1 10^3/uL (0.0-0.1); Basophils % 0.6 %; Eosinophils # 0.3 10^3/uL (0.0-0.8); Eosinophils % 3.4 %; Hematocrit 37.1 % (37-53); Lymphocytes % 24.2 %; Mean Corpuscular HGB Conc 32.3 g/dL (30-55); Mean Corpuscular Hemoglobin 28.6 pg (27-33); Mean Corpuscular Volume 88.3 fl (82-101); Mean Platelet Volume 8.4 fL (7.4-10.4); Monocytes # 0.7 10^3/uL (0.2-0.9); Monocytes % 7.9 %; Neutrophils # 5.24 10^3/uL (1.8-7.7); Neutrophils % 63.5 %; Nucleated Red Blood Cells % 0 %; Platelet Count 259 10^3/cmm (157-399); Red Cell Distribution Width 13.9 % (12.1-15.1); White Blood Count 8.25 10^3/uL (3.29-11.43)
[2023-08-09 08:35] LABS: Alanine Aminotransferase 20 U/L (0-41); Albumin Level 4.1 g/dL (3.5-5.2); Alkaline Phosphatase 132 U/L (40-130); Anion Gap 14.3 (5-19); Aspartate Amino Transferase 25 U/L (0-40); Blood Urea Nitrogen 16 mg/dL (8-23); Calcium 8.9 mg/dL (8.5-10.5); Carbon Dioxide 26 mmol/L (22-29); Chloride 104 mmol/L (98-107); Globulin 2.5 g/dL (1.3-4.6); Glomerular Filtration Rate 86.1 mL/min (90-130); Glucose 133 mg/dL (65-115); Immunoglobulin IGA 194 mg/dL (70-400); Immunoglobulin IGG 1089 mg/dL (700-1600); Osmolality Calculated 293 mOsm/kg (285-295); Potassium 4.3 mmol/L (3.5-5.1); Sodium 140 mmol/L (136-145); Total Bilirubin 0.3 mg/dL (0.15-1.2); Total Protein 6.6 g/dL (6.6-8.7)
[2023-08-09 08:39] LABS: Immunoglobulin IGM < 25 mg/dL (40-230)
[2023-08-09] MEDS: diphenhydrAMINE 25 mg Capsule PO (08:58)
[2023-08-09] MEDS: sodium chloride 0.9% 250 ML 50 ML IV (08:58)
[2023-08-09] MEDS: acetaminophen 325 mg Tablet 650 MG PO (08:58)
[2023-08-09] MEDS: immune globulin (Privigen ONC) 40 GM in empty flexible container 1 EACH IV (09:09)
== END 2023-09-01 23:59 | disposition home or self-care (01) ==
PROVIDERS: Nurse Practitioner Family; PCP Nurse Practitioner Family; Visit Provider Internal Medicine Medical Oncology
DX: D80.1 Nonfamilial hypogammaglobulinemia (principal)
CPT/HCPCS: 80053; 82784; 85025; 96365; 96366; J1459; J7050

== ENCOUNTER 2023-09-06 07:59 | Oncology outpatient (recurring) (ONCR) | payer BC, SELFPAY ==
[2023-09-06] VITALS (7 sets, daily range): BP systolic 98–146; BP diastolic 45–86; PULSE 45–54; RESP 16; TEMP 36.3–36.7; O2SAT 90–98
[2023-09-06 08:39] LABS: Basophils % 0.5 %; Eosinophils # 0.3 10^3/uL (0.0-0.8); Eosinophils % 3.6 %; Hematocrit 36.8 % (37-53); Lymphocytes % 26.6 %; Mean Corpuscular HGB Conc 32.3 g/dL (30-55); Mean Corpuscular Hemoglobin 28.5 pg (27-33); Mean Corpuscular Volume 88.2 fl (82-101); Mean Platelet Volume 8.8 fL (7.4-10.4); Monocytes # 0.6 10^3/uL (0.2-0.9); Monocytes % 8.3 %; Neutrophils # 4.55 10^3/uL (1.8-7.7); Neutrophils % 60.6 %; Nucleated Red Blood Cells % 0 %; Platelet Count 248 10^3/cmm (157-399); Red Blood Count 4.17 10^6/uL (3.85-5.65); Red Cell Distribution Width 13.6 % (12.1-15.1); White Blood Count 7.51 10^3/uL (3.29-11.43)
[2023-09-06 08:54] LABS: Alanine Aminotransferase 15 U/L (0-41); Albumin Level 3.8 g/dL (3.5-5.2); Alkaline Phosphatase 143 U/L (40-130); Anion Gap 12.3 (5-19); Aspartate Amino Transferase 25 U/L (0-40); Blood Urea Nitrogen 13 mg/dL (8-23); Calcium 9.2 mg/dL (8.5-10.5); Carbon Dioxide 29 mmol/L (22-29); Chloride 103 mmol/L (98-107); Globulin 2.9 g/dL (1.3-4.6); Glomerular Filtration Rate 86.1 mL/min (90-130); Glucose 128 mg/dL (65-115); Osmolality Calculated 292 mOsm/kg (285-295); Potassium 4.3 mmol/L (3.5-5.1); Sodium 140 mmol/L (136-145); Total Bilirubin 0.3 mg/dL (0.15-1.2); Total Protein 6.7 g/dL (6.6-8.7)
[2023-09-06] MEDS: diphenhydrAMINE 25 mg Capsule PO (09:10)
[2023-09-06] MEDS: acetaminophen 325 mg Tablet 650 MG PO (09:10)
[2023-09-06] MEDS: sodium chloride 0.9% 500 ML 75 ML IV (09:29)
[2023-09-06] MEDS: immune globulin (Privigen ONC) 40 GM in empty flexible container 1 EACH IV (09:30)
== END 2023-10-02 23:59 | disposition home or self-care (01) ==
LOC: ONCMED 07:59
PROVIDERS: Nurse Practitioner Family; PCP Nurse Practitioner Family; Visit Provider Internal Medicine Medical Oncology
DX: D80.1 Nonfamilial hypogammaglobulinemia (principal)
CPT/HCPCS: 80053; 85025; 96365; 96366; J1459; J7040

== ENCOUNTER → 2023-09-14 16:50 | Outpatient (BNVA) | payer BC, SELFPAY | PROVIDERS: PCP Nurse Practitioner Family; Visit Provider Nurse Practitioner Family | DX: I48.91 Unspecified atrial fibrillation (principal); Z12.5 Encounter for screening for malignant neoplasm of prostate; R73.9 Hyperglycemia, unspecified | CPT/HCPCS: 80061; 83036; 84443; G0103 ==

== ENCOUNTER 2023-10-17 08:00 | Oncology outpatient (recurring) (ONCR) | payer BC, SELFPAY ==
[2023-10-04 10:40] VITALS: BP 139/86; PULSE 71; RESP 16; TEMP 36.5; O2SAT 93
[2023-10-04 10:51] LABS: Basophils % 0.3 %; Eosinophils # 0.3 10^3/uL (0.0-0.8); Eosinophils % 3.7 %; Hematocrit 39.2 % (37-53); Lymphocytes # 2.3 10^3/uL (0.8-4.8); Lymphocytes % 30.6 %; Mean Corpuscular HGB Conc 33.2 g/dL (30-55); Mean Corpuscular Hemoglobin 29.2 pg (27-33); Mean Corpuscular Volume 88.1 fl (82-101); Monocytes # 0.6 10^3/uL (0.2-0.9); Monocytes % 8.7 %; Neutrophils # 4.17 10^3/uL (1.8-7.7); Neutrophils % 56.4 %; Nucleated Red Blood Cells % 0 %; Platelet Count 208 10^3/cmm (157-399); Red Blood Count 4.45 10^6/uL (3.85-5.65); Red Cell Distribution Width 13.2 % (12.1-15.1); White Blood Count 7.38 10^3/uL (3.29-11.43)
[2023-10-04 11:09] LABS: Alanine Aminotransferase 22 U/L (0-41); Albumin Level 3.8 g/dL (3.5-5.2); Alkaline Phosphatase 120 U/L (40-130); Anion Gap 10.3 (5-19); Aspartate Amino Transferase 25 U/L (0-40); Blood Urea Nitrogen 10 mg/dL (8-23); Calcium 9.4 mg/dL (8.5-10.5); Carbon Dioxide 31 mmol/L (22-29); Chloride 102 mmol/L (98-107); Globulin 3.3 g/dL (1.3-4.6); Glomerular Filtration Rate 86.1 mL/min (90-130); Glucose 90 mg/dL (65-115); Immunoglobulin IGA 287 mg/dL (70-400); Immunoglobulin IGG 1013 mg/dL (700-1600); Immunoglobulin IGM 33 mg/dL (40-230); Lactate Dehydrogenase 202 U/L (135-225); Osmolality Calculated 287 mOsm/kg (285-295); Potassium 4.3 mmol/L (3.5-5.1); Sodium 139 mmol/L (136-145); Total Bilirubin 0.2 mg/dL (0.15-1.2); Total Protein 7.1 g/dL (6.6-8.7)
[2023-10-17] VITALS (7 sets, daily range): BP systolic 108–126; BP diastolic 57–76; PULSE 43–50; RESP 16–18; TEMP 35.8–36.5; O2SAT 93–96
[2023-10-17] MEDS: diphenhydrAMINE 25 mg Capsule PO (08:30)
[2023-10-17] MEDS: acetaminophen 325 mg Tablet 650 MG PO (08:31)
[2023-10-17] MEDS: sodium chloride 0.9% (100 ml) 100 ML 75 ML (08:37)
[2023-10-17] MEDS: immune globulin (Privigen ONC) 40 GM in empty flexible container 1 EACH IV (08:37)
== END 2023-11-02 23:59 | disposition home or self-care (01) ==
PROVIDERS: Nurse Practitioner Family; PCP Nurse Practitioner Family; Visit Provider Internal Medicine Medical Oncology
DX: D80.1 Nonfamilial hypogammaglobulinemia (principal); Z53.9 Procedure and treatment not carried out, unspecified reason
CPT/HCPCS: 80053; 82784; 83615; 85025; 96365; 96366; J1459

== ENCOUNTER → 2023-10-25 17:38 | Outpatient (BNVA) | payer BC, SELFPAY | PROVIDERS: PCP Nurse Practitioner Family; Visit Provider Nurse Practitioner Family | DX: R79.89 Other specified abnormal findings of blood chemistry (principal) | CPT/HCPCS: 84439; 84443; 84481 ==

== ENCOUNTER 2023-11-14 10:40 | Oncology outpatient (recurring) (ONCR) | payer BC, SELFPAY ==
[2023-11-14] VITALS (8 sets, daily range): BP systolic 115–136; BP diastolic 72–86; PULSE 55–69; RESP 18; TEMP 36.3–36.7; O2SAT 90–97
[2023-11-14 10:55] LABS: Basophils # 0.1 10^3/uL (0.0-0.1); Basophils % 0.6 %; Eosinophils # 0.2 10^3/uL (0.0-0.8); Eosinophils % 2.6 %; Hematocrit 39.1 % (37-53); Lymphocytes # 2.7 10^3/uL (0.8-4.8); Lymphocytes % 34.5 %; Mean Corpuscular HGB Conc 32.7 g/dL (30-55); Mean Corpuscular Hemoglobin 28.3 pg (27-33); Mean Corpuscular Volume 86.3 fl (82-101); Mean Platelet Volume 8.5 fL (7.4-10.4); Monocytes # 0.8 10^3/uL (0.2-0.9); Monocytes % 10.3 %; Neutrophils # 3.97 10^3/uL (1.8-7.7); Neutrophils % 51.6 %; Nucleated Red Blood Cells % 0 %; Platelet Count 293 10^3/cmm (157-399); Red Blood Count 4.53 10^6/uL (3.85-5.65); Red Cell Distribution Width 13.4 % (12.1-15.1)
[2023-11-14 11:13] LABS: Alanine Aminotransferase 19 U/L (0-41); Albumin Level 3.9 g/dL (3.5-5.2); Alkaline Phosphatase 142 U/L (40-130); Anion Gap 12.9 (5-19); Aspartate Amino Transferase 22 U/L (0-40); Blood Urea Nitrogen 15 mg/dL (8-23); Calcium 8.8 mg/dL (8.5-10.5); Carbon Dioxide 26 mmol/L (22-29); Chloride 99 mmol/L (98-107); Globulin 3.2 g/dL (1.3-4.6); Glomerular Filtration Rate 68.3 mL/min (90-130); Glucose 113 mg/dL (65-115); Osmolality Calculated 280 mOsm/kg (285-295); Potassium 3.9 mmol/L (3.5-5.1); Sodium 134 mmol/L (136-145); Total Bilirubin 0.2 mg/dL (0.15-1.2); Total Protein 7.1 g/dL (6.6-8.7)
[2023-11-14] MEDS: diphenhydrAMINE 25 mg Capsule PO (11:25)
[2023-11-14] MEDS: acetaminophen 325 mg Tablet 650 MG PO (11:25)
[2023-11-14] MEDS: sodium chloride 0.9% (100 ml) 100 ML 75 ML (11:30)
[2023-11-14] MEDS: immune globulin (Gamunex) 40 GM in empty flexible container 1 EACH IV (11:32)
== END 2023-12-01 23:59 | disposition home or self-care (01) ==
PROVIDERS: Internal Medicine Medical Oncology; PCP Nurse Practitioner Family; Visit Provider Nurse Practitioner Family
DX: D80.1 Nonfamilial hypogammaglobulinemia (principal)
CPT/HCPCS: 80053; 85025; 96365; 96366; J1561

== ENCOUNTER 2023-12-12 10:53 | Oncology outpatient (recurring) (ONCR) | payer BC, SELFPAY ==
[2023-12-12] VITALS (9 sets, daily range): BP systolic 117–157; BP diastolic 63–93; PULSE 53–74; RESP 16–18; TEMP 36.5–36.8; O2SAT 92–97
[2023-12-12 11:08] LABS: Basophils % 0.4 %; Eosinophils # 0.4 10^3/uL (0.0-0.8); Eosinophils % 4.9 %; Hematocrit 36.5 % (37-53); Lymphocytes # 2.6 10^3/uL (0.8-4.8); Lymphocytes % 33.9 %; Mean Corpuscular HGB Conc 32.9 g/dL (30-55); Mean Corpuscular Hemoglobin 28.3 pg (27-33); Mean Corpuscular Volume 86.1 fl (82-101); Mean Platelet Volume 8.4 fL (7.4-10.4); Monocytes # 0.6 10^3/uL (0.2-0.9); Monocytes % 7.9 %; Neutrophils # 3.94 10^3/uL (1.8-7.7); Neutrophils % 52.2 %; Nucleated Red Blood Cells % 0 %; Platelet Count 291 10^3/cmm (157-399); Red Blood Count 4.24 10^6/uL (3.85-5.65); Red Cell Distribution Width 13.3 % (12.1-15.1); White Blood Count 7.55 10^3/uL (3.29-11.43)
[2023-12-12] MEDS: sodium chloride 0.9% 250 ML 75 ML IV (11:17)
[2023-12-12] MEDS: acetaminophen 325 mg Tablet 650 MG PO (11:18)
[2023-12-12] MEDS: diphenhydrAMINE 25 mg Capsule PO (11:18)
[2023-12-12 11:33] LABS: Alanine Aminotransferase 18 U/L (0-41); Albumin Level 3.9 g/dL (3.5-5.2); Alkaline Phosphatase 151 U/L (40-130); Anion Gap 12.7 (5-19); Aspartate Amino Transferase 26 U/L (0-40); Blood Urea Nitrogen 9 mg/dL (8-23); Calcium 8.9 mg/dL (8.5-10.5); Carbon Dioxide 29 mmol/L (22-29); Chloride 100 mmol/L (98-107); Globulin 3.4 g/dL (1.3-4.6); Glomerular Filtration Rate 86.1 mL/min (90-130); Glucose 108 mg/dL (65-115); Osmolality Calculated 283 mOsm/kg (285-295); Potassium 4.7 mmol/L (3.5-5.1); Sodium 137 mmol/L (136-145); Total Bilirubin 0.2 mg/dL (0.15-1.2); Total Protein 7.3 g/dL (6.6-8.7)
[2023-12-12] MEDS: immune globulin (Privigen ONC) 40 GM in empty flexible container 1 EACH IV (11:33)
== END 2024-01-01 23:59 | disposition home or self-care (01) ==
LOC: ONCMED 10:53
PROVIDERS: Internal Medicine Medical Oncology; PCP Nurse Practitioner Family; Visit Provider Nurse Practitioner Family
DX: D80.1 Nonfamilial hypogammaglobulinemia (principal)
CPT/HCPCS: 80053; 85025; 96365; 96366; J1459; J7050

== ENCOUNTER → 2024-01-20 15:44 | Outpatient (BNVA) | payer BC, SELFPAY | PROVIDERS: PCP Nurse Practitioner Family; Visit Provider Nurse Practitioner Family | DX: M25.511 Pain in right shoulder (principal) | CPT/HCPCS: 73030 ==

== ENCOUNTER → 2024-01-26 10:26 | Outpatient (BNVA) | payer BC, SELFPAY | PROVIDERS: PCP Nurse Practitioner Family; Visit Provider Nurse Practitioner Family | DX: R05.9 Cough, unspecified (principal) | CPT/HCPCS: 71046 ==

== ENCOUNTER → 2024-03-30 13:59 | Outpatient (BNVA) | payer BC, SELFPAY | PROVIDERS: PCP Nurse Practitioner Family; Visit Provider Nurse Practitioner Family | DX: J18.9 Pneumonia, unspecified organism (principal); M25.511 Pain in right shoulder; G89.29 Other chronic pain | CPT/HCPCS: 93005 ==

== ENCOUNTER → 2024-04-10 16:35 | Outpatient (BNVA) | payer BC, SELFPAY | PROVIDERS: PCP Nurse Practitioner Family; Visit Provider Nurse Practitioner Family | DX: M25.50 Pain in unspecified joint (principal); R73.9 Hyperglycemia, unspecified; I10 Essential (primary) hypertension | CPT/HCPCS: 80053; 80061; 82607; 83036; 83735; 84443; 84550; 85025; 85651; 86038; 86140; 86200; 86431 ==

== ENCOUNTER 2024-05-16 06:00 | Outpatient (RCR) | payer BC, SELFPAY | END 2024-06-02 23:59 | disposition home or self-care (01) | LOC: TPT 06:00 | PROVIDERS: PCP Nurse Practitioner Family; Visit Provider Nurse Practitioner Family | DX: M25.511 Pain in right shoulder (principal); G89.29 Other chronic pain | CPT/HCPCS: 97110; 97140; 97162 ==

== ENCOUNTER → 2024-11-01 10:57 | Outpatient (BNVA) | payer OTHER, SELFPAY | PROVIDERS: PCP Nurse Practitioner Family; Visit Provider Nurse Practitioner Family | DX: I10 Essential (primary) hypertension (principal); F41.9 Anxiety disorder, unspecified; I48.91 Unspecified atrial fibrillation; R53.83 Other fatigue | CPT/HCPCS: 36415; 83880 ==

== ENCOUNTER → 2025-02-15 10:33 | Outpatient (BNVA) | payer OTHER, SELFPAY | PROVIDERS: PCP Nurse Practitioner Family; Visit Provider Nurse Practitioner Family | DX: I10 Essential (primary) hypertension (principal); R73.9 Hyperglycemia, unspecified; Z12.5 Encounter for screening for malignant neoplasm of prostate | CPT/HCPCS: 80053; 80061; 82040; 82306; 82607; 83036; 84270; 84403; 84443; 85025; G0103 ==

== ENCOUNTER 2025-05-10 10:51 | Outpatient (CLI) | payer OTHER, SELFPAY ==
--- NOTE | 2025-05-10 10:58 | XR_ITS ---
WS: [id number] XR lumbar spine 6V w f/e [id number] REASON FOR EXAM: LUMBOSACRAL SPONDYLOSIS FINDINGS: Mild rotatory dextroscoliosis. Normal lordosis. Chronic appearing superior endplate compression deformities of L1-L3. Mild narrowing of the L1-L2 disc space. Remaining disc spaces are intact and relatively well preserved. Moderate osteophytosis of the vertebral bodies L1-L5. No spondylolysis. No significant spondylolisthesis. Moderate degenerative arthropathy in the facet joints L4-S1. XR/XR lumbar spine 6V w f/e [id number] IMPRESSION: Chronic compression deformities and degenerative spondylosis as above.
== END 2025-05-10 10:52 | disposition home or self-care (01) ==
LOC: RAD 10:54
PROVIDERS: PCP Nurse Practitioner Family; Visit Provider Student in an Organized Health Care Education/Training Program
DX: M47.817 Spondylosis without myelopathy or radiculopathy, lumbosacral region (principal)
CPT/HCPCS: 72114